=== PATIENT | female | born 1955 | race Caucasian/White ===

== ENCOUNTER 2018-12-29 15:04 | Emergency (ER) | payer SELFPAY ==
[~2018-12-29] VITALS: Ht 160 cm; Wt 90.7 kg
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
--- OUTSIDE RECORDS SUMMARY | 2018-12-29 15:18 | XMS REPORT ---
Author Author DIANA LANDRY Organization [facility] Address [address] [place] [address] Care Team Providers Care Contour Sander Name Role Phone LANDRY DIANA Unavailable PROBLEMS Type Condition ICD9-CM Code SDA14-BY Code Onset Dates Condition Status SNOMED Code Problem MRSA (methicillin resistant Staphylococcus aureus) A49.02 Active 497223704 Problem Allergy T78.40XA Active 665220319 Problem Asthma J45.909 Active 096413612 Problem Hypertension, benign I10 Active 85193828 Problem Ischemic heart disease I25.9 Active 421808285 Problem GERD (gastroesophageal reflux disease) K21.9 Active 820107484 Problem Hyperlipidemia, mixed E78.2 Active 316022217 ALLERGIES No Information ENCOUNTERS Encounter Location Date Diagnosis [facility] [id number] [place] [address]- 3196 Aug, [facility] [id number] [place] [address] 02061- 1064 Aug, [facility] [id number] [place] [address] 80097- 5378 Jul, Screening for breast cancer Z12.31 ; Vaginal discharge N89.8 ; Encounter for immunization Z23 ; Candidal vulvitis B37.3 ; Screening for osteoporosis Z13.820 and Skin tag L91.8 [facility] [id number] [place] [address] 23918- 9137 Jun, Hyperlipidemia, mixed E78.2 ; Hypertension, benign I10 ; Ischemic heart disease I25.9 ; Unprotected sex Z72.51 ; Need for hepatitis B screening test Z11.59 and Need for hepatitis C screening test Z11.59 [facility] [id number] [place] [address] 87908 -9912 Apr, Vaginal itching L29.8 [place] [id number] [place] [address] 26182- 5620 March, [facility] [id number] [place] [address] 52901 -5617 Nov, [facility] [id number] [place] [address] 11918 -2216 Nov, Acute atopic conjunctivitis of both eyes H10.13 [place] [address] 74274- 8604 Oct, Acute non-recurrent maxillary sinusitis J01.00 [place] [address] 74148- 1848 Aug, Encounter for immunization Z23 [place] [address] 16115- 3071 Apr, Allergy T78.40XA [place] [address] 43268- 8442 Apr, Chest wall pain R07.89 [place] [address] 78900- 1146 Apr, Chest wall pain R07.89 [place] [address] 60271- 7095 March, Allergy T78.40XA [place] [id number] [place] [address] 86036- 6187 Jan, [place] [id number] [place] [address] 51368- 7679 Jan, Allergic conjunctivitis, bilateral H10.13 [place] [address] 00225- 9789 Dec, Non-seasonal allergic rhinitis due to other allergic trigger J30.89 [place] [address] 83660- 9296 Sep, Acute upper respiratory infection, unspecified J06.9 and Encounter for immunization Z23 [place] [id number] [place] [address] 59951- 9981 May, Essential hypertension I10 and Coronary artery disease involving coronary bypass graft of [place] heart without angina pectoris I25.810 [place] [id number] [place] [address] 55505- 5484 May, [place] [address] 95722- 0616 Apr, [place] [address] 74172- 3760 Apr, [address] 75080- 8966 March, Allergic rhinitis 477.[address] 64100- 9904 Feb, [address] 86140- 9147 Feb, Hypertension, benign I10 ; Gastritis K29.70 ; Rhinitis J31.0 ; Mild intermittent asthma without complication J45.20 and Hand pain, right M79.641 [facility] [id number] [place] [address] [id number] 10 Jan, 2016 Encounter for dental examination Z01.20 [place] [id number] [place] [address] 51316- 6793 Dec, Closed displaced fracture of distal phalanx of finger S62.639A and Allergy T78.40XA [address] 82216- 0842 Nov, Fracture of distal phalanx of finger S62.639A ; GERD ( gastroesophageal reflux disease) K21.9 and Asthma J45.909 [place] [id number] [place] [address] 46747- 4890 15 Mark, 2016 Fracture of distal phalanx of finger S62.639A [place] [id number] [place] [address] 03641- 8719 Oct, [place] [address] 62477- 2453 Oct, [place] [address] 03058- 6095 Oct, Hyperlipidemia E78.5 [place] [address] 36274- 0501 Sep, Mood disorder F39 ; Hyperlipidemia, mixed E78.2 ; Ischemic heart disease I25.9 ; ST elevation (STEMI) myocardial infarction involving left anterior descending coronary artery I21.02 ; Hypertension, benign I10 and Coronary artery disease involving [place] heart without angina pectoris, unspecified vessel or lesion type I25.10 [place] [address] 08659- 9533 Aug, Encounter for immunization Z23 [place] [address] 64815- 0003 15 Jul, 2015 [place] [address] 03493- 5026 Jul, Sinusitis 473.9 and Allergic rhinitis 477.9 [place] [address] 94565- 6798 Jul, [place] [address] 71918- 2227 Jun, [place] [id number] [place] [address] 22481- 7070 May, 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 [place] [address] 74297- 8798 May, 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 [place] [address] 73915- 2081 May, Allergic conjunctivitis 372.14 and Rectal bleeding 569.3 [facility] [address] [address] 3899 Apr, Other and unspecified hyperlipidemia 272.4 and Coronary atherosclerosis of [place] coronary artery 414.01 [facility] [address] [address] 0406 March, [facility] [id number] [place] [address] 161403- 2767 March, [facility] [address] [facility] [id number] [address] 7634 Feb, [facility] [id number] [place] [address] 209663- 3904 Feb, [facility] [address] [address]- 9211 Jan, [facility] [address] [address]- 2183 Jan, [facility] [address] [address]- 4825 Jan, [facility] [address] [address]- 6871 Jan, [facility] [address] [address]- 3758 Jan, [facility] [address] [address]- 5110 Jan, [facility] [id number] 3036 Dec, [facility] [address] [address]- 4907 Dec, [facility] [id number] [address]- 5966 Dec, [facility] [address] [address]- 9835 Dec, [facility] [place] [facility] [address] [id number] [place] [address]- 6383 Nov, [facility] [place] [facility] [address] [id number] [place] [address]- 2306 Nov, [facility] [place] [facility] [address] [id number] [place] [address]- 5961 Jul, [facility] [place] [facility] [address] [id number] [place] [address]- 8256 Jul, [facility] [place] [facility] [address] [id number] [place] [address]- 6823 Jul, [facility] [place] [facility] [address] [id number] [place] [address]- 8764 Jul, [facility] [place] [facility] [address] [id number] [place] [address]- 9891 Jun, [facility] [place] [facility] [address] [id number] [place] [address]- 7534 Jun, [facility] [place] [facility] [address] [id number] [place] [address]- 5584 Apr, [facility] [place] [facility] [address] [id number] [place] [address]- 6527 Apr, [facility] [place] [facility] [address] [id number] [place] [address]- 8809 Jan, [facility] [place] [facility] [address] [id number] [place] [address]- 1168 Jan, [facility] [place] [facility] [address] [id number] [place] [address]- 7912 Jan, [facility] [place] [facility] [address] [id number] [place] [address]- 1706 Jan, [facility] [place] [facility] [address] [id number] [place] [address]- 2176 Dec, [facility] [place] [facility] [address] [id number] [place] [address]- 4518 Dec, [facility] [address] [id number] [place] [address]- 4073 Nov, [facility] [place] [facility] [address] [id number] [place] [address]- 5976 Nov, [facility] [address] [id number] [place] [address]- 2237 Jun, [facility] [place] [facility] [address] [id number] [place] [address]- 7668 Jun, [facility] [address] [id number] [place] [address]- 2956 Apr, [facility] [address] [id number] [place] [address]- 2922 Apr, [facility] [address] [id number] [place] [address]- 2339 Apr, [facility] [address] [id number] [place] [address]- 3682 March, [facility] [address] [id number] [place] [address]- 5788 Nov, [facility] [address] [id number] [place] [address]- 4841 Oct, [facility] [place] [facility] [address] [id number] [place] [address]- 9879 Oct, [facility] [address] [id number] [place] [address]- 4572 Oct, [facility] [place] [facility] [address] [id number] [place] [address]- 1724 Oct, [facility] [place] [facility] [address] [id number] [place] [address]- 6146 Sep, [facility] [place] [facility] [address] [id number] [place] [address]- 5380 Aug, [facility] [address] [id number], [place] [address]- 4510 Aug, [facility] [address] [id number] [place] [address]- 0647 Aug, [facility] [address] [facility] [id number] [place] [address]- 3250 Jul, [facility] [address] [id number] [place] [address]- 6399 Jun, [facility] [address] [id number] [place] [address]- 9101 Jun, [facility] [address] [id number] [place] [address]- 6267 Jun, [facility] [address] [facility] [id number] [place] [address]- 6778 Jun, [facility] [address] [facility] [id number], [place] [address]- 3009 March, [facility] [address] [facility] [id number], [place] [address]- 3094 March, [facility] [address] [facility] [id number], [place] [address]- 1171 Oct, [facility] [address] [facility] [id number], [place] [address]- 2367 March, [facility] [address] [facility] [id number], [place] [address]- 5768 Sep, [facility] [address] [facility] [id number], [place] [address]- 0517 Aug, [facility] [address] [facility] [id number], [place] [address]- 2032 Aug, [facility] [address] [facility] [id number][place] [address]- 9534 Aug, IMMUNIZATIONS No Known Immunizations SOCIAL HISTORY Never Assessed REASON FOR VISIT Requests return call PLAN OF CARE VITAL SIGNS MEDICATIONS Unknown Medications RESULTS No Results PROCEDURES No Known procedures INSTRUCTIONS MEDICATIONS ADMINISTERED No Known Medications MEDICAL [...]
--- OUTSIDE RECORDS SUMMARY | 2018-12-29 15:18 | XMS REPORT ---
Author Author JUSTINE GARCIA [facility] Address [address] [place] [address] Care Team Providers Care Flasher Adjuster Name Role Phone JUSTINE GARCIA Unavailable PROBLEMS Type Condition ICD9-CM Code NWD14-XK Code Onset Dates Condition Status SNOMED Code Problem MRSA (methicillin resistant Staphylococcus aureus) A49.02 Active 689622086 Problem Allergy T78.40XA Active 455653583 Problem Asthma J45.909 Active 724866475 Problem Hypertension, benign I10 Active 98929997 Problem Ischemic heart disease I25.9 Active 953665978 Problem GERD (gastroesophageal reflux disease) K21.9 Active 408034025 Problem Hyperlipidemia, mixed E78.2 Active 362250987 ALLERGIES No Information ENCOUNTERS Encounter Location Date Diagnosis [facility] [id number] [place] [address] [id number] Aug, [facility] [address] [address] Aug, [facility] [id number] [place] [address] 70319- 3864 Jul, Screening for breast cancer Z12.31 ; Vaginal discharge N89.8 ; Encounter for immunization Z23 ; Candidal vulvitis B37.3 ; Screening for osteoporosis Z13.820 and Skin tag L91.8 [facility] [id number] [place] [address] 05967- 6015 Jun, Hyperlipidemia, mixed E78.2 ; Hypertension, benign I10 ; Ischemic heart disease I25.9 ; Unprotected sex Z72.51 ; Need for hepatitis B screening test Z11.59 and Need for hepatitis C screening test Z11.59 [facility] [id number] [place] [address]55 -9610 Apr, Vaginal itching L29.8 [place] [id number] [place] [address] 09989- 5280 March, [facility] [id number] [place] [address] 98669 -2808 Nov, [facility] [id number] [place] [address]267 -0281 Nov, Acute atopic conjunctivitis of both eyes H10.13 [place] [id number] [place] [address] 52708- 8452 Oct, Acute non-recurrent maxillary sinusitis J01.00 [place] [address] [address]- [address]166 Aug, Encounter for immunization Z23 [address] [address] [address]- [address] Apr, Allergy T78.40XA [place] [address] 0[address]10- 5216 Apr, Chest wall pain R07.89 [place] [address] [address]- 1948 Apr, Chest wall pain R07.89 [place] [address] 96324- 1917 March, Allergy T78.40XA [place] [id number] [place] [address] 38139- 2069 Jan, [place] [id number] [place] [address] 56589- 5915 Jan, Allergic conjunctivitis, bilateral H10.13 [place] [id number] [place] [address] 10892- 3281 Dec, Non-seasonal allergic rhinitis due to other allergic trigger J30.89 [place] [id number] [place] [address] 52689- 0343 Sep, Acute upper respiratory infection, unspecified J06.9 and Encounter for immunization Z23 [address] [address] [address]- [address]1 May, Essential hypertension I10 and Coronary artery disease involving coronary bypass graft of moapa heart without angina pectoris I25.[address] [address]- [address]24 May, [place] [address] [address]- 3490 Apr, [address] [address]- [address] Apr, [place] [address] 64249- 0955 March, Allergic rhinitis 477.[address] [address]150- 5702 Feb, [address] [address]65- 5533 Feb, Hypertension, benign I10 ; Gastritis K29.70 ; Rhinitis J31.0 ; Mild intermittent asthma without complication J45.20 and Hand pain, right M79.641 [facility] [address] [id number] Jan, 2016 Encounter for dental examination Z01.[address] 03288- 0794 Dec, Closed displaced fracture of distal phalanx of finger S62.639A and Allergy T78.40XA [address] [address]50- 8437 Nov, Fracture of distal phalanx of finger S62.639A ; GERD ( gastroesophageal reflux disease) K21.9 and Asthma J45.[address] 81859- 3905 Nov, Fracture of distal phalanx of finger S62.639A [place] [id number] [place] [address] 31478- 6663 Oct, [place] [id number] [place] [address] 95335- 7146 Oct, [place] [id number] [place] [address] 11743- 2748 Oct, Hyperlipidemia E78.5 [place] [address] 41870- 9968 Sep, Mood disorder F39 ; Hyperlipidemia, mixed E78.2 ; Ischemic heart disease I25.9 ; ST elevation (STEMI) myocardial infarction involving left anterior descending coronary artery I21.02 ; Hypertension, benign I10 and Coronary artery disease involving moapa heart without angina pectoris, unspecified vessel or lesion type I25.10 [place] [address] 72532- 6610 08 Aug, 2015 Encounter for immunization Z23 [place] [id number] [place] [address] 96954- 1225 15 Jul, 2015 [place] [id number] [place] [address] 17719- 0163 Jul, Sinusitis 473.9 and Allergic rhinitis 477.9 [place] [id number] [place] [address] 50600- 1727 Jul, [place] [id number] [place] [address] 63623- 4745 Jun, [place] [id number] [place] [address] 14467- 8580 May, 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 [place] [id number] [place] [address] 64279- 0260 May, 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 [place] [id number] [place] [address] 80373- 4028 May, Allergic conjunctivitis 372.14 and Rectal bleeding 569.3 [facility] [address] [address] Apr, Other and unspecified hyperlipidemia 272.4 and Coronary atherosclerosis of moapa coronary artery 414.01 [facility] [address] [address] March, [facility] [id number] [place] [address] 53080- 2678 March, [facility] [id number] [place] [address] 50530- 8002 Feb, [facility] [id number] [place] [address] 84997- 5193 Feb, [facility] [id number] [place] [address] 332758- 4356 Jan, [facility] [id number] [place] [address] 02874- 5246 Jan, [facility] [address] [address]- [address]63 Jan, [facility] [address] [place] [address] 79827- 9009 Jan, [facility] [address] [place] [address]- 3993 Jan, [facility] [address] [place] [address]- 1237 Jan, [facility] [address] [place] [address]- 5849 Dec, [facility] [id number] [address]- 6946 Dec, [facility] [address] [place] [address]- 2546 Dec, [facility] [id number] [place] [address] 53057- 7109 Dec, [facility] [place] [facility] [address] [id number] [place] [address]- 8555 Nov, [facility] [place] [facility] [address] [id number] [place] [address]- 7832 Nov, [facility] [place] [facility] [address] [id number] [place] [address]- 7945 Jul, [facility] [place] [facility] [address] [id number] [place] [address]- 7924 Jul, [facility] [place] [facility] [address] [id number] [place] [address]- 7360 Jul, [facility] [place] [facility] [address] [id number] [place] [address]- 1545 Jul, [facility] [place] [facility] [address] [id number] [place] [address]- 7620 Jun, [facility] [place] [facility] [address] [id number] [place] [address]- 1278 Jun, [facility] [place] [facility] [address] [id number] [place] [address]- 3915 Apr, [facility] [place] [facility] [address] [id number] [place] [address]- 2293 Apr, [facility] [place] [facility] [address] [id number] [place] [address]- 7929 Jan, [facility] [place] [facility] [address] [id number], [place] [address]- 5360 Jan, [facility] [place] [facility] [address] [id number] [place] [address]- 0148 Jan, [facility] [place] [facility] [address] [id number] [place] [address]- 6954 Jan, [facility] [place] [facility] [address] [id number], [place] [address]- 6182 Dec, [facility] [place] [facility] [address] [id number] [place] [address]- 7360 Dec, [facility] [place] [facility] [address] [id number] [place] [address]- 0155 Nov, [facility] [place] [facility] [address] [id number] [place] [address]- 2978 Nov, [facility] [place] [facility] [address] [id number] [place] [address]- 4192 Jun, [facility] [place] [facility] [address] [id number] [place] [address]- 5917 Jun, [facility] [place] [facility] [address] [id number] [place] [address]- 5423 Apr, [facility] [place] [facility] [address] [id number] [place] [address]- 4618 Apr, [facility] [place] [facility] [address] [id number] [place] [address]- 3340 Apr, [facility] [place] [facility] [address] [id number] [place] [address]- 0661 March, [facility] [place] [facility] [address] [id number] [place] [address]- 5326 Nov, [facility] [place] [facility] [address] [id number] [place] [address]- 4777 Oct, [facility] [place] [facility] [address] [id number] [place] [address]- 2529 Oct, [facility] [place] [facility] [address] [id number] [place] [address]- 8919 Oct, [facility] [place] [facility] [address] [id number] [place] [address]- 6858 Oct, [facility] [place] [facility] [address] [id number] [place] [address]- 7173 Sep, [facility] [place] [facility] [address] [id number] [place] [address]- 4491 Aug, [facility] [address] [facility] [id number], [place] [address]- 2771 Aug, [facility] [address] [facility] [id number], [place] [address]- 5624 Aug, [facility] [address] [facility] [id number], [place] [address]- 9763 Jul, [facility] [address] [id number], [place] [address]- 4966 Jun, [facility] [address] [id number] [place] [address]- 4265 Jun, [facility] [address] [facility] [id number], [place] [address]- 9327 Jun, [facility] [address] [facility] [id number], [place] [address]- 2264 Jun, [facility] [address] [facility] [id number], [place] [address]- 6138 March, [facility] [address] [facility] [id number], [place] [address]- 8918 March, [facility] [address] [facility] [id number], [place] [address]- 0946 Oct, [facility] [address] [facility] [id number], [place] [address]- 0653 March, [facility] [address] [facility] [id number], [place] [address]- 9824 Sep, [facility] [address] [facility] [id number], [place] [address]- 4431 Aug, [facility] [address] [facility] [id number] [address]97 Aug, [facility] [address] [facility] [id number], [place] [address]- 2264 Aug, IMMUNIZATIONS No Known Immunizations SOCIAL HISTORY Never Assessed REASON FOR VISIT med order PLAN OF CARE VITAL SIGNS MEDICATIONS Medication Instructions Dosage Frequency Start Date End Date Duration Status Doxycycline Hyclate 100 mg Orally twice a day 1 capsule 12h 04 Aug, 2018 Aug, 10 day(s) Active RESULTS No Results PROCEDURES No Known procedures [...]
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
--- OUTSIDE RECORDS SUMMARY | 2018-12-29 15:19 | XMS REPORT ---
Author Author MANSI SCHAFFER Organization [facility] Address [address] [place] [address] Care Team Providers Care Media Professional Name Role Phone MANSI SCHAFFER Unavailable PROBLEMS Type Condition ICD9-CM Code XRQ82-NV Code Onset Dates Condition Status SNOMED Code Problem Allergy T78.40XA Active 261899261 Problem Asthma J45.909 Active 640552154 Problem Hypertension, benign I10 Active 25569194 Problem Ischemic heart disease I25.9 Active 503416093 Problem GERD (gastroesophageal reflux disease) K21.9 Active 073332568 Problem Hyperlipidemia, mixed E78.2 Active 668212468 ALLERGIES No Information ENCOUNTERS Encounter Location Date Diagnosis [place] [address] [address] March, [place] [address] [address] March, [facility] [place] [address] [address] Nov, [facility] [address] [address] Nov, Acute atopic conjunctivitis of both eyes H10.13 [place] [address] [address] Oct, Acute non-recurrent maxillary sinusitis J01.00 [place] [address] [address] Aug, Encounter for immunization Z23 [place] [address] [address] Apr, Allergy T78.40XA [place] [address] [address] Apr, Chest wall pain R07.89 [place] [address] [place] [id number] [place] [address]- [address] Apr, Chest wall pain R07.89 [place] [address] [place] [id number] [place] [address] 8[address]19- 2285 March, Allergy T78.40XA [place] [address] [address] Jan, [place] [address] [place] [id number] [place] [address]- [address]851 Jan, Allergic conjunctivitis, bilateral H10.13 [place] [address] [place] [id number] [place] [address] 87[address]- 1217 Dec, Non-seasonal allergic rhinitis due to other allergic trigger J30.89 [place] [address] [place] [id number] [place] [address] 18261- 8826 Sep, Acute upper respiratory infection, unspecified J06.9 and Encounter for immunization Z23 [place] [id number] [place] [address]89- [address]689 May, Essential hypertension I10 and Coronary artery disease involving coronary bypass graft of [place] heart without angina pectoris I25.810 [place] [address] [place] [id number] [place] [address] May, [place] [address] [place] [id number] [place] [address] 72437- 6649 Apr, [place] [address] [place] [id number] [place] [address] 20298- 6131 Apr, [place] [address] [place] [id number] [place] [address] 18909- 0906 March, Allergic rhinitis 477.9 [place] [address] [place] [id number] [place] [address]260- 7704 Feb, [place] [address] [place] [address] 07 Feb, 2016 Hypertension, benign I10 ; Gastritis K29.70 ; Rhinitis J31.0 ; Mild intermittent asthma without complication J45.20 and Hand pain, right M79.641 [facility] [address] [place] [id number] [place] [id number] 10 Jan, 2016 Encounter for dental examination Z01.20 [place] [address] [address] 29 Dec, 2015 Closed displaced fracture of distal phalanx of finger S62.639A and Allergy T78.40XA [address] [address] Nov, Fracture of distal phalanx of finger S62.639A ; GERD ( gastroesophageal reflux disease) K21.9 and Asthma J45.[address] [address] Nov, Fracture of distal phalanx of finger S62.639A [place] [address] [address] Oct, [address] [address] Oct, [address] [address] Oct, Hyperlipidemia E78.[address] [address] Sep, Mood disorder F39 ; Hyperlipidemia, mixed E78.2 ; Ischemic heart disease I25.9 ; ST elevation (STEMI) myocardial infarction involving left anterior descending coronary artery I21.02 ; Hypertension, benign I10 and Coronary artery disease involving [place] heart without angina pectoris, unspecified vessel or lesion type I25.10 [place] [address] [address]- [address] 08 Aug, 2015 Encounter for immunization Z23 [address] [id number] [address] 15 Jul, 2015 [facility] [address] [place] [id number] [place] [address] 45569- [address] Jul, Sinusitis 473.9 and Allergic rhinitis 477.9 [facility] [address] [place] [id number] [place] [address] 83850- 57[address] Jul, [facility] [address] [place] [id number] [place] [address] 76844- 6079 Jun, [facility] [address] [place] [id number] [place] [address] 33737- 2532 May, 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 [facility] [address] [place] [id number] [place] [address] 59350- 9525 May, 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 [facility] [address] [place] [id number] [place] [address] 87007- 9886 May, Allergic conjunctivitis 372.14 and Rectal bleeding 569.3 [facility] [address] [place] [id number] [place] [address] 58172- 1255 Apr, Other and unspecified hyperlipidemia 272.4 and Coronary atherosclerosis of [place] coronary artery 414.01 [facility] [address] [place] [id number] [place] [address] 24142- 1382 March, [facility] [address] [place] [id number] [place] [address] 46182- 8945 March, [facility] [address] [place] [id number] [place] [address] 94871- 6566 Feb, [facility] [address] [place] [id number] [place] [address] 84955- 1547 Feb, [facility] [address] [place] [id number] [place] [address] 65622- 4141 Jan, [facility] [id number] [place] [address] 42544- 5847 Jan, [facility] [place] [facility] [address] [id number] [place] [address] Jan, 2014 [facility] [place] [facility] [address] [id number] [place] [address] 8942 Jan, 2014 [facility] [place] [facility] [address] [id number] [place] [address]- 7906 Jan, 2014 [facility] [place] [facility] [address] [id number] [place] [address]- 9022 Jan, 2014 [facility] [place] [facility] [address] [id number] [place] [address]- 1089 Dec, 2014 [facility] [place] [facility] [address] [id number] [place] [address]- 9151 Dec, 2014 [facility] [place] [facility] [address] [id number] [place] [address]- 2167 Dec, 2014 [facility] [place] [facility] [address] [id number] [place] [address]- 9832 Dec, 2014 [facility] [place] [facility] [address] [id number] [place] [address]- 0706 Nov, [facility] [place] [facility] [address] [id number] [place] [address]- 5988 Nov, [facility] [place] [facility] [address] [id number] [place] [address]- 0165 Jul, [facility] [place] [facility] [address] [id number] [place] [address]- [address]109 24 Jul, 2014 [facility] [place] [facility] [address] [id number] [place] [address]- 1679 Jul, [facility] [place] [facility] [address] [id number] [place] [address]- 1343 Jul, [facility] [place] [facility] [address] [id number] [place] [address]- 6947 Jun, [facility] [place] [facility] [address] [id number] [place] [address]- 5069 Jun, [facility] [place] [facility] [address] [id number] [place] [address]- 8239 Apr, [facility] [place] [facility] [address] [id number] [place] [address]- 1488 Apr, [facility] [place] [facility] [address] [id number] [place] [address]- 3002 Jan, [facility] [place] [facility] [address] [id number] [place] [address]- 3051 Jan, [facility] [place] [facility] [address] [id number] [place] [address]- 3739 Jan, [facility] [place] [facility] [address] [id number] [place] [address]- 9317 Jan, [facility] [place] [facility] [address] [id number] [place] [address]- 7257 Dec, [facility] [place] [facility] [address] [id number] [place] [address]- 8861 Dec, [facility] [place] [facility] [address] [id number] [place] [address]- 1828 Nov, [facility] [place] [facility] [address] [id number] [place] [address]- 8512 Nov, [facility] [place] [facility] [address] [id number] [place] [address]- 3615 Jun, [facility] [place] [facility] [address] [id number] [place] [address]- 6047 Jun, [facility] [place] [facility] [address] [id number] [place] [address]- 2093 Apr, [facility] [place] [facility] [address] [id number] [place] [address]- 6797 Apr, [facility] [place] [facility] [address] [id number] [place] [address]- 5498 Apr, [facility] [place] [facility] [address] [id number] [place] [address]- 3044 March, [facility] [place] [facility] [address] [id number] [place] [address]- 2358 Nov, [facility] [place] [facility] [address] [id number] [place] [address] Oct, [facility] [place] [facility] [address] [id number] [place] [address]- 7331 Oct, [facility] [place] [facility] [address] [id number] [place] [address]- 9618 Oct, [facility] [place] [facility] [address] [id number] [place] [address]- 9022 Oct, [facility] [place] [facility] [address] [id number] [place] [address]- 3628 Sep, [facility] [place] [facility] [address] [id number] [place] [address]- 8421 Aug, [facility] [place] [facility] [address] [id number] [place] [address]- 4237 Aug, [facility] [place] [facility] [address] [id number] [place] [address]- 1517 Aug, [facility] [place] [facility] [address] [id number] [place] [address]- 3716 Jul, [facility] [place] [facility] [address] [id number] [place] [address]- 5683 Jun, [facility] [place] [facility] [address] [id number] [place] [address]- 3777 Jun, [facility] [place] [facility] [address] [id number] [place] [address]- 8229 Jun, [facility] [place] [facility] [address] [id number] [place] [address] Jun, [facility] [place] [facility] [address] [id number] [place] [address]- 2367 March, [facility] [address] [facility] [id number] [address] March, [facility] [address] [id number] [address] Oct, [facility] [address] [id number] [address] March, [facility] [address] [id number] [address] Sep, [facility] [address] [id number] [address] Aug, [facility] [address] [id number] [address]- [address] Aug, [facility] [address] [id number] [address]- [address] Aug, IMMUNIZATIONS Vaccine Route Administration Date Status FLUARIX QUAD (3 AND UP) 2017 IM Intramuscular Sep 04, 2017 Administered SOCIAL HISTORY Never Assessed REASON FOR VISIT flu shot jjournotR PLAN OF CARE VITAL SIGNS MEDICATIONS Unknown Medications RESULTS No Results PROCEDURES Procedure Date Ordered Result Body Site FLUARIX QUAD (3 & UP)--2014Sep 04, 2017 SINGLE IMMUNIZATION ADMIN Sep 04, 2017 INSTRUCTIONS MEDICATIONS ADMINISTERED No Known Medications MEDICAL [...]
--- OUTSIDE RECORDS SUMMARY | 2018-12-29 15:19 | XMS REPORT ---
Author MANSI Cervantes Organization [employer] Address Unknown Phone Unavailable Care Team Providers Care Communications Field Technician Name Role Phone MANSI SCHAFFER CP Unavailable Allergies No Known Allergies Problems Problem Type Condition Code Onset Dates Condition Status Problem Ischemic heart disease I25.9 Active Problem Hypertension, benign I10 Active Problem Hyperlipidemia, mixed E78.2 Active Assessment Hyperlipidemia E78.5 Active Medications No Known Medications Procedures Procedure Coding System Code Date LIPID PANEL CPT-4 17219 Oct 17, 2015 VENIPUNCT, ROUTINE* CPT-4 77907 Oct 17, 2015 COMPREHEN METABOLIC PANEL CPT-4 30989 Oct 17, 2015 Results No Known Results Summary Purpose [employer] Submission
--- OUTSIDE RECORDS SUMMARY | 2018-12-29 15:19 | XMS REPORT ---
Author MARIA D Forrest [facility] [employer] Address Unknown Phone Unavailable Care Team Providers Care Food Service Manager Name Role Phone MARIA D GUZMAN Unavailable Allergies, Adverse Reactions, Alerts Substance Reaction Event Type Penicillin V Potassium Info Not Available Drug Allergy Benzoyl Peroxide Info Not Available Drug Allergy Morphine violent behavior Drug Allergy Proactive Info Not Available Non Drug Allergy Problems Problem Type Condition ICD-9 Code Onset Dates Condition Status Problem Allergic rhinitis due to pollen 477.0 Active Problem Insomnia, unspecified 780.52 Active Problem Asthma, unspecified, unspecified status 493.90 Active Assessment Allergic rhinitis 477.9 Active Assessment Sinusitis 473.9 Active Problem Other and unspecified hyperlipidemia 272.4 Active Problem Other specified forms of chronic ischemic heart disease 414.8 Active Problem Unspecified episodic mood disorder 296.90 Active Problem Coronary atherosclerosis of che[place] coronary artery 414.01 Active Problem Unspecified pulmonary tuberculosis, confirmation unspecified 011.90 Active Problem Unspecified essential hypertension 401.9 Active Problem Obesity, unspecified 278.00 Active Medications Medication Code System Code Instructions Start Date End Date Status Dosage Flonase [facility] [address]-11 50 MCG/ACT Nasally 2 times a day Jul 25, 2015 1 spray in each nostril Cromolyn Sodium [facility] [address]-14 4 % Ophthalmic Four times a day June 04, 2015 1 drop into affected eye Singulair [facility] [address]-91 10 mg Aug 07, 2014 1 tablet by Oral route 1 time per day Doxycycline Hyclate [facility] [address]-44 100 MG Orally every 12 hrs Jul 25, 2015 Aug 04, 2015 1 capsule Protonix [facility] 74676186912 40 MG TAKE ONE TABLET BY MOUTH DAILY Aspirin [facility] [address]-84 81 MG Orally Once a day 1 tablet Melatonin [facility] [address]-67 5 MG Orally Once a day 1 tablet at bedtime as needed with food Simvastatin [facility] [address]-13 20 mg Aug 07, 2014 take 1 tablet ( 20 mg) by oral route once daily in the evening Ventolin HFA [facility] [address]-97 90 mcg/actuation Aug 07, 2014 2 puffs by Inhalation route 4 times per day Lisinopril [facility] [address]-07 10 mg 1 TAB orally once a day Aug 07, 2014 take 1 tablet by Oral route 1 time per day Metoprolol Tartrate [facility] 58810863580 25 MG TAKE ONE-HALF TABLET BY MOUTH TWICE DAILY Cetirizine HCl [facility] [address]-40 10 MG TAKE ONE TABLET BY MOUTH ONCE DAILY Procedures Procedure Coding System Code Date Office Visit, Est Pt., Level 3 CPT-4 03906 Jul 25, 2015 Vital Signs Date/Time: Jul 25, 2015 Temperature 98.5 F Weight 190.5 lbs Height 61 in BMI 35.99 Index Blood Pressure Diastolic 80 mmHg Blood Pressure Systolic 126 mmHg Cardiac Monitoring Heart Rate 80 bpm Results No Known Results Summary Purpose [employer] Submission
--- OUTSIDE RECORDS SUMMARY | 2018-12-29 15:19 | XMS REPORT ---
Author Author MELISSA GUTIÉRREZ [facility] Address [address] [place] [address] Care Team Providers Care Electronic Health Records Specialist Name Role Phone MELISSA GUTIÉRREZ Unavailable PROBLEMS Type Condition ICD9-CM Code [id number] Code Onset Dates Condition Status SNOMED Code Problem Allergy T78.40XA Active 502765185 Problem Asthma J45.909 Active 831276306 Problem Hypertension, benign I10 Active 48086247 Problem Ischemic heart disease I25.9 Active 064869342 Problem GERD (gastroesophageal reflux disease) K21.9 Active 280036380 Problem Hyperlipidemia, mixed E78.2 Active 862425110 ALLERGIES Substance Reaction Event Type Date Status Penicillin V Potassium Unknown Drug Allergy Apr, Active Benzoyl Peroxide Unknown Drug Allergy Apr, Active Morphine violent behavior Drug Allergy Apr, Active Proactive Unknown Non Drug Allergy Apr, Active ENCOUNTERS Encounter Location Date Diagnosis [facility] [place] [facility] [address] [id number] Aug, [facility] [id number] [place] [address] 21096- 1451 Jul, [facility] [id number] [place] [address] 13214- 8204 Jun, Hyperlipidemia, mixed E78.2 ; Hypertension, benign I10 ; Ischemic heart disease I25.9 ; Unprotected sex Z72.51 ; Need for hepatitis B screening test Z11.59 and Need for hepatitis C screening test Z11.59 [facility] [id number] [place] [address]7850 -4214 Apr, Vaginal itching L29.8 [facility] [id number] [place] [address] 61792- 4778 March, [facility] [id number] [place] [address]30 [address]0196 Nov, [facility] [id number] [place] [address] 06751 -6542 Nov, Acute atopic conjunctivitis of both eyes H10.13 [place] [id number] [place] [address] 60581- 1896 Oct, Acute non-recurrent maxillary sinusitis J01.00 [place] [id number] [place] [address] 22376- 2429 Aug, Encounter for immunization Z23 [place] [address] 26406- 4068 Apr, Allergy T78.40XA [place] [address] 80166- 9748 Apr, Chest wall pain R07.89 [place] [address] 30635- 0023 Apr, Chest wall pain R07.89 [place] [address] 06757- 2774 March, Allergy T78.40XA [place] [id number] [place] [address] 40196- 0940 Jan, [place] [id number] [place] [address] 26947- 1351 Jan, Allergic conjunctivitis, bilateral H10.13 [place] [id number] [place] [address] 75145- 5846 Dec, Non-seasonal allergic rhinitis due to other allergic trigger J30.89 [place] [id number] [place] [address] 53896- 2037 Sep, Acute upper respiratory infection, unspecified J06.9 and Encounter for immunization Z23 [place] [address] 31435- 7859 May, Essential hypertension I10 and Coronary artery disease involving coronary bypass graft of [place] heart without angina pectoris I25.810 [place] [address] 12846- 8843 May, [place] [address] 40112- 6194 Apr, [address] [address]42- 4858 Apr, [address] 82230- 3168 March, Allergic rhinitis [address] 56864- 2480 Feb, [address] 83084- 3079 Feb, Hypertension, benign I10 ; Gastritis K29.70 ; Rhinitis J31.0 ; Mild intermittent asthma without complication J45.20 and Hand pain, right M79.641 [facility] [place] [facility] [id number] [place] [id number] 10 Jan, 2016 Encounter for dental examination Z01.20 [place] [id number] [place] [address] 36071- 9474 Dec, Closed displaced fracture of distal phalanx of finger S62.639A and Allergy T78.40XA [place] [id number] [place] [address] 67433- 2357 Nov, Fracture of distal phalanx of finger S62.639A ; GERD ( gastroesophageal reflux disease) K21.9 and Asthma J45.[address] 50326- 5657 Nov, Fracture of distal phalanx of finger S62.639A [place] [id number] [place] [address] 49262- 7247 Oct, [place] [address] 93875- 3872 Oct, [place] [address] 72095- 5339 Oct, Hyperlipidemia E78.5 [place] [address] 92148- 4853 Sep, Mood disorder F39 ; Hyperlipidemia, mixed E78.2 ; Ischemic heart disease I25.9 ; ST elevation (STEMI) myocardial infarction involving left anterior descending coronary artery I21.02 ; Hypertension, benign I10 and Coronary artery disease involving [place] heart without angina pectoris, unspecified vessel or lesion type I25.10 [place] [address] 06440- 8516 Aug, Encounter for immunization Z23 [address] 54321- 5176 Jul, [place] [address] 28556- 2796 Jul, Sinusitis 473.9 and Allergic rhinitis 477.9 [place] [address] 27719- 8007 Jul, [place] [address] 08638- 8807 Jun, [place] [address] 81364- 8528 May, 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 [place] [address] 53446- 7930 May, 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 [place] [address] 32731- 5967 May, Allergic conjunctivitis 372.14 and Rectal bleeding 569.[address] 73546- 4139 Apr, Other and unspecified hyperlipidemia 272.4 and Coronary atherosclerosis of [place] coronary artery 414.01 [facility] [address] [id number], [place] [address] March, [facility] [address] [id number], [place] [address] 68[address] March, [facility] [place] [address] [id number], [place] [address] 8765 Feb, [facility] [address] [id number], [place] [address] 4537 Feb, [facility] [address] [id number], [place] [address] 2648 Jan, [facility] [address] [facility] [id number], [place] [address] 3581 Jan, [facility] [place] [facility] [address] [address] 8389 Jan, [facility] [address] [facility] [id number], [place] [address]- 6431 Jan, [facility] [address] [address] 4995 Jan, [facility] [address] [address] 5041 Jan, [facility] [place] [facility] [address] [id number], [place] [address] 9633 Dec, [facility] [address] [id number], [place] [address]- 2065 Dec, [facility] [address] [id number], [place] [address] 0731 Dec, [facility] [address] [facility] [id number] 1147 Dec, [facility] [address] [id number], [place] [address] 3830 Nov, [facility] [address] [id number] [place] [address]- 0334 Nov, [facility] [place] [facility] [address] [id number] [place] [address]- 6241 Jul, [facility] [place] [facility] [address] [id number] [place] [address]- 2899 Jul, [facility] [place] [facility] [address] [id number] [place] [address]- 5206 Jul, [facility] [place] [facility] [address] [id number] [place] [address] 1986 Jul, [facility] [place] [facility] [address] [id number] [place] [address]- 7272 Jun, [facility] [place] [facility] [address] [id number] [place] [address]- 9386 Jun, [facility] [place] [facility] [address] [id number] [place] [address]- 2895 Apr, [facility] [place] [facility] [address] [id number] [place] [address]- 9906 Apr, [facility] [place] [facility] [address] [id number] [place] [address]- 3788 Jan, [facility] [place] [facility] [address] [id number] [place] [address]- 6439 Jan, [facility] [place] [facility] [address] [id number], [place] [address]- 9851 Jan, [facility] [place] [facility] [address] [id number] [place] [address]- 0758 Jan, [facility] [place] [facility] [address] [id number] [place] [address]- 6110 Dec, [facility] [place] [facility] [address] [id number] [place] [address]- 9838 Dec, [facility] [place] [facility] [address] [id number], [place] [address]- 4958 Nov, [facility] [address] [id number] [place] [address]- 1907 Nov, [facility] [place] [facility] [address] [id number] [place] [address]- 4531 Jun, [facility] [place] [facility] [address] [id number] [place] [address]- 8355 Jun, [facility] [place] [facility] [address] [id number] [place] [address]- 3320 Apr, [facility] [place] [facility] [address] [id number] [place] [address]- 8746 Apr, [facility] [place] [facility] [address] [id number] [place] [address]- 0658 Apr, [facility] [place] [facility] [address] [facility] [id number] [place] [address]- 5079 March, [facility] [place] [facility] [address] [id number] [place] [address]- 3143 Nov, [facility] [place] [facility] [address] [facility] [id number] [place] [address]- 0595 Oct, [facility] [place] [facility] [address] [facility] [id number] [place] [address]- 3719 Oct, [facility] [place] [facility] [address] [id number] [place] [address]- 5574 Oct, [facility] [place] [facility] [address] [id number] [place] [address]- 1134 Oct, [facility] [place] [facility] [address] [id number] [place] [address]- 5278 Sep, [facility] [place] [facility] [address] [facility] [id number] [place] [address]- 1134 Aug, [facility] [place] [facility] [address] [facility] [id number] [place] [address]- 8639 Aug, [facility] [place] [facility] [address] [facility] [id number], [place] [address] 2546 Aug, [facility] [address] [facility] [id number], [place] [address]- 9266 Jul, [facility] [address] [facility] [id number], [place] [address] 2546 Jun, [facility] [address] [facility] [id number], [place] [address]- 3756 Jun, [facility] [address] [facility] [id number], [place] [address]- 6536 Jun, [facility] [address] [address]- 0436 Jun, [facility] [address] [id number], [place] [address]- 0336 March, [facility] [address], [place] [address]- 5256 March, [facility] [address], [place] [address]- 0286 Oct, [facility] [address], [place] [address]- 0256 March, [facility] [address], [place] [address] 2546 Sep, [facility] [address] [id number], [place] [address]- 9426 Aug, [facility] [address] [id number], [place] [address]- 8832 Aug, [facility] [address] [id number], [place] [address]- 2809 Aug, IMMUNIZATIONS No Known Immunizations SOCIAL HISTORY Never Assessed REASON FOR VISIT vaginal itching et dysuria for a week. pt reports she changed laundry detergents et soaps...thinks this is what caused this. tricia PLAN OF CARE Activity Details Follow Up prn Reason: VITAL SIGNS Height 61 in 2018-04-26 Weight 195.6 lbs 2018-04-26 Temperature 97.8 degrees Fahrenheit 2018-04-26 Heart Rate 70 bpm 2018-04-26 Respiratory Rate 20 2018-04-26 BMI 36.95 kg/m2 2018-04-26 Blood pressure systolic 126 mmHg 2018-04-26 Blood pressure diastolic 78 mmHg 2018-04-26 MEDICATIONS Medication Instructions Dosage Frequency Start Date End Date Duration Status Melatonin 5 MG Orally Once a day 1 tablet at bedtime as needed with food 24h Active Singulair 10 mg 1 tablet in the evening 24h 90 Active Monistat 3 4 % Vaginal Once a day 1 application at bedtime 24h Active Aspirin 81 MG Orally Once a day 1 tablet 24h Active Proventil HFA 108 (90 Base) MCG/ACT 2 puffs as needed 6h Active Protonix 40 mg 1 tablet 24h Active Simvastatin 20 mg 1 tablet in the evening 24h 90 Active Zoloft 50 mg Orally Once a day 1 tablet 24h Active Lisinopril 10 mg 1 tablet 24h 90 Active Metoprolol Tartrate 25 MG 1/2 tablet 12h Active Dexamethasone 0.1 % Ophthalmic Three times a day 1 drop into affected eye 8h Nov, 3 days Active Fluticasone Propionate 50 MCG/ACT Nasally Once a day 2 spray in each nostril 24h Dec, Active Diflucan 200 MG Orally every 72 hours 1 tablet 3 days Active Loratadine 10 MG Orally Once a day 1 tablet 24h Nov, Jun, 30 day(s) Active Cetirizine HCl 10 MG TAKE ONE TABLET BY MOUTH ONCE DAILY 30 Active RESULTS Name Result Date Reference Range UA LONG DIP (IN HOUSE) 2018-04-26 Lot # [id number] Exp date 2019 02 30 Clarity clear Color yellow Odor none GLU negative BHANU negative KET negative SG 1.025 BLO trace pH 6.0 Protein trace URO 0.2 NIT negative RAFA trace Lot # [id number] Exp date Oct 2018 PROCEDURES Procedure Date Ordered Result Body Site URINALYSIS, AUTO, W/O SCOPE April 26, 2018 INSTRUCTIONS MEDICATIONS ADMINISTERED No Known Medications [...]
--- OUTSIDE RECORDS SUMMARY | 2018-12-29 15:19 | XMS REPORT ---
Author Author MANSI SCHAFFER Organization [employer] Address Unknown Phone Unavailable Care Team Providers Care Manager Progressive Care Name Role Phone MANSI SCHAFFER CP Unavailable Allergies No Known Allergies Problems Problem Type Condition ICD-9 Code Onset Dates Condition Status Problem Allergic rhinitis due to pollen 477.0 Active Problem Insomnia, unspecified 780.52 Active Problem Asthma, unspecified, unspecified status 493.90 Active Problem Other and unspecified hyperlipidemia 272.4 Active Problem Other specified forms of chronic ischemic heart disease 414.8 Active Problem Unspecified episodic mood disorder 296.90 Active Problem Coronary atherosclerosis of [place] coronary artery 414.01 Active Problem Unspecified pulmonary tuberculosis, confirmation unspecified 011.90 Active Problem Unspecified essential hypertension 401.9 Active Problem Obesity, unspecified 278.00 Active Medications No Known Medications Results No Known Results Summary Purpose [employer] Submission
--- OUTSIDE RECORDS SUMMARY | 2018-12-29 15:19 | XMS REPORT ---
Author Author MANSI SCHAFFER Organization [facility] Address [address] [place] [address] Care Team Providers Care Motion Picture Operator Name Role Phone MANSI SCHAFFER Unavailable PROBLEMS Type Condition ICD9-CM Code HKS05-FL Code Onset Dates Condition Status SNOMED Code Problem Allergy T78.40XA Active 443297573 Problem Asthma J45.909 Active 407368338 Problem Hypertension, benign I10 Active 59785298 Problem Ischemic heart disease I25.9 Active 613148071 Problem GERD (gastroesophageal reflux disease) K21.9 Active 910248630 Problem Hyperlipidemia, mixed E78.2 Active 594123576 ALLERGIES No Information ENCOUNTERS Encounter Location Date Diagnosis [facility] [address] [address] Jul, [facility] [address] [id number] Jun, [facility] [address] [address] Jun, Hyperlipidemia, mixed E78.2 ; Hypertension, benign I10 ; Ischemic heart disease I25.9 ; Unprotected sex Z72.51 ; Need for hepatitis B screening test Z11.59 and Need for hepatitis C screening test Z11.59 [facility] [id number] [place] [address] Apr, Vaginal itching L29.8 [facility] [address] [address] March, [facility] [address] [address] Nov, [facility] [address] [address] Nov, Acute atopic conjunctivitis of both eyes H10.13 [place] [id number] [place] [address] Oct, Acute non-recurrent maxillary sinusitis J01.00 [place] [id number] [place] [address] Aug, Encounter for immunization Z23 [place] [address] [address] Apr, Allergy T78.40XA [place] [address] [address] Apr, Chest wall pain R07.89 [place] [address] [address] Apr, Chest wall pain R07.89 [place] [address] [address] March, Allergy T78.40XA [place] [address] [address] Jan, [place] [address] [address] Jan, Allergic conjunctivitis, bilateral H10.13 [place] [address] [address] Dec, Non-seasonal allergic rhinitis due to other allergic trigger J30.89 [place] [id number] [place] [address] Sep, Acute upper respiratory infection, unspecified J06.9 and Encounter for immunization Z23 [place] [address] [address] May, Essential hypertension I10 and Coronary artery disease involving coronary bypass graft of [place] heart without angina pectoris I25.810 [place] [address] [address] May, [place] [id number] [place] [address] Apr, [place] [address] [address] Apr, [place] [address] [address] March, Allergic rhinitis [address] [address] Feb, [address] [address] Feb, Hypertension, benign I10 ; Gastritis K29.70 ; Rhinitis J31.0 ; Mild intermittent asthma without complication J45.20 and Hand pain, right M79.641 [facility] [address] [id number] Jan, 2016 Encounter for dental examination Z01.20 [place] [id number] [place] [address] Dec, Closed displaced fracture of distal phalanx of finger S62.639A and Allergy T78.40XA [place] [id number] [place] [address] Nov, Fracture of distal phalanx of finger S62.639A ; GERD ( gastroesophageal reflux disease) K21.9 and Asthma J45.909 [place] [id number] [place] [address] Nov, Fracture of distal phalanx of finger S62.639A [address] [address] Oct, [place] [id number] [place] [address] Oct, [address] [address] Oct, Hyperlipidemia E78.5 [place] [id number] [place] [address] Sep, Mood disorder F39 ; Hyperlipidemia, mixed E78.2 ; Ischemic heart disease I25.9 ; ST elevation (STEMI) myocardial infarction involving left anterior descending coronary artery I21.02 ; Hypertension, benign I10 and Coronary artery disease involving [place] heart without angina pectoris, unspecified vessel or lesion type I25.[address] [address] 08 Aug, 2015 Encounter for immunization Z23 [address] [address] Jul, [address] [address] Jul, Sinusitis 473.9 and Allergic rhinitis 477.[address] [address] Jul, [address] [address] Jun, [address] [address] May, 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 [place] [id number] [place] [address] May, 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 [address] May, Allergic conjunctivitis 372.14 and Rectal bleeding 569.[address] [address] Apr, Other and unspecified hyperlipidemia 272.4 and Coronary atherosclerosis of [place] coronary artery 414.01 [place] [id number] [place] [address] March, [place] [id number] [place] [address] March, [facility] [address] [id number] [place] [address] 14 Feb, 2015 [facility] [place] [facility] [address] [id number] [place] [address] Feb, [facility] [place] [facility] [address] [id number] [place] [address] Jan, [facility] [place] [facility] [address] [id number] [place] [address] Jan, [facility] [place] [facility] [address] [id number] [place] [address]- 16[address] Jan, [facility] [place] [facility] [address] [id number] [place] [address] Jan, [facility] [place] [facility] [address] [id number] [place] [address]- [address] Jan, [facility] [place] [facility] [address] [id number] [place] [address]- [address] Jan, [facility] [place] [facility] [address] [id number] [place] [address]- [address] Dec, [facility] [place] [facility] [address] [facility] [id number] [place] [address] Dec, [facility] [place] [facility] [address] [id number] [place] [address]- [address] Dec, [facility] [place] [facility] [address] [id number] [place] [address]- [address] Dec, [facility] [place] [facility] [address] [id number] [place] [address]- [address] Nov, [facility] [place] [facility] [address] [id number] [place] [address]- [address] Nov, [facility] [place] [facility] [address] [id number] [place] [address]- [address] Jul, [facility] [place] [facility] [address] [id number] [place] [address] Jul, [facility] [place] [facility] [address] [id number] [place] [address]- [address]597 Jul, [facility] [place] [facility] [address] [id number] [place] [address] Jul, [facility] [place] [facility] [address] [id number] [place] [address]- 0702 Jun, [facility] [place] [facility] [address] [id number] [place] [address] 26[address] Jun, [facility] [place] [facility] [address] [id number] [place] [address]- [address] Apr, [facility] [place] [facility] [address] [id number] [place] [address]- [address] Apr, [facility] [place] [facility] [address] [id number] [place] [address]- [address] Jan, [facility] [place] [facility] [address] [id number] [place] [address]- 27[address] Jan, [facility] [place] [facility] [address] [id number] [place] [address]- [address] Jan, [facility] [place] [facility] [address] [id number] [place] [address] Jan, [facility] [place] [facility] [address] [id number], [place] [address] Dec, [facility] [place] [facility] [address] [id number] [place] [address]- 7[address] Dec, [facility] [place] [facility] [address] [id number] [place] [address] 8[address] Nov, [facility] [place] [facility] [address] [id number] [place] [address]- 10[address] Nov, [facility] [place] [facility] [address] [id number] [place] [address]- [address] Jun, [facility] [place] [facility] [address] [id number] [place] [address]- 30[address] Jun, [facility] [place] [facility] [address] [id number] [place] [address]- [address] Apr, [facility] [place] [facility] [address] [id number] [place] [address]- 49[address] Apr, [facility] [place] [facility] [address] [id number] [place] [address]- 90[address] Apr, [facility] [place] [facility] [address] [id number] [place] [address]- [address] March, [facility] [place] [facility] [address] [id number] [place] [address]- 2[address] Nov, [facility] [place] [facility] [address] [id number] [place] [address]- 97[address] Oct, [facility] [place] [facility] [address] [id number] [place] [address]- 64[address] Oct, [facility] [place] [facility] [address] [id number] [place] [address]- 8[address] Oct, [facility] [place] [facility] [address] [facility] [id number] [place] [address]- [address] Oct, [facility] [place] [facility] [address] [id number] [place] [address]- [address] Sep, [facility] [place] [facility] [address] [id number] [place] [address]- 4[address] Aug, [facility] [place] [facility] [address] [id number] [place] [address]- 488[address] Aug, [facility] [place] [facility] [address] [id number] [place] [address]- 8628 Aug, [facility] [place] [facility] [address] [id number] [place] [address]- 7[address] Jul, [facility] [address] [facility] [id number], [place] [address] Jun, [facility] [address] [facility] [id number], [place] [address] Jun, [facility] [address] [facility] [id number], [place] [address]- [address] Jun, [facility] [address] [facility] [id number], [place] [address] Jun, [facility] [address] [facility] [id number], [place] [address] March, [facility] [address] [facility] [id number], [place] [address] March, [facility] [address] [address] Oct, [facility] [address], [place] [address] March, [facility] [address], [place] [address] Sep, [facility] [address] [id number], [place] [address] Aug, [facility] [address] [id number], [place] [address] Aug, [facility] [address] [id number], [place] [address] Aug, IMMUNIZATIONS No Known Immunizations SOCIAL HISTORY Never Assessed REASON FOR VISIT Eye Exam Appt PLAN OF CARE VITAL SIGNS MEDICATIONS Unknown [...]
--- OUTSIDE RECORDS SUMMARY | 2018-12-29 15:20 | XMS REPORT ---
Author MANSI Cervantes Organization [employer] Address Unknown Phone Unavailable Care Team Providers Care Director Account Management Name Role Phone MANSI SCHAFFER CP Unavailable Allergies No Known Allergies Problems Problem Type Condition Code Onset Dates Condition Status Problem Ischemic heart disease I25.9 Active Problem Hypertension, benign I10 Active Problem Hyperlipidemia, mixed E78.2 Active Medications No Known Medications Results No Known Results Summary Purpose [employer] Submission
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
--- OUTSIDE RECORDS SUMMARY | 2018-12-29 15:20 | XMS REPORT ---
Author SHAYNE Tucker [facility] [employer] Address Unknown Phone Unavailable Care Team Providers Care Solar Project Coordination Specialist Name Role Phone SHAYNE CARDONA CP Unavailable Allergies, Adverse Reactions, Alerts Substance Reaction Event Type Penicillin V Potassium Info Not Available Drug Allergy Benzoyl Peroxide Info Not Available Drug Allergy Morphine violent behavior Drug Allergy Proactive Info Not Available Non Drug Allergy Problems Problem Type Condition Code Onset Dates Condition Status Assessment Asthma J45.909 Active Problem Asthma J45.909 Active Problem Hyperlipidemia, mixed E78.2 Active Problem GERD (gastroesophageal reflux disease) K21.9 Active Assessment Fracture of distal phalanx of finger S62.639A Active Assessment GERD (gastroesophageal reflux disease) K21.9 Active Problem Ischemic heart disease I25.9 Active Problem Hypertension, benign I10 Active Medications Medication Code System Code Instructions Start Date End Date Status Dosage Lisinopril [facility] [address]-71 10 MG Once a day 1 tablet Cromolyn Sodium [facility] [address]-07 4 % Ophthalmic Four times a day 1 drop into affected eye Aspirin [facility] [address]-16 81 MG Orally Once a day 1 tablet Metoprolol Tartrate [facility] 23207776496 25 MG TAKE ONE-HALF TABLET BY MOUTH TWICE DAILY Cetirizine HCl [facility] [address]-11 10 MG TAKE ONE TABLET BY MOUTH ONCE DAILY Simvastatin [facility] [address]-99 20 MG Once a day 1 tablet in the evening Melatonin [facility] [address]-20 5 MG Orally Once a day 1 tablet at bedtime as needed with food Protonix [facility] 54222294385 40 MG TAKE ONE TABLET BY MOUTH DAILY Proventil HFA [facility] 05930348695 108 (90 Base) MCG/ACT INHALE TWO PUFFS BY MOUTH FOUR TIMES DAILY Ventolin HFA [facility] [address]-48 90 mcg/actuation Aug 07, 2014 2 puffs by Inhalation route 4 times per day Singulair [facility] 80948467254 10 MG TAKE ONE TABLET BY MOUTH DAILY Procedures Procedure Coding System Code Date Office Visit, Est Pt., Level 3 CPT-4 83942 Dec 14, 2015 X-RAY EXAM OF FINGER(S) CPT-4 96684 Dec 14, 2015 Vital Signs Date/Time: Dec 14, 2015 Temperature 97.7 F Weight 180.1 lbs Height 61 in BMI 34.03 Index Blood Pressure Diastolic 76 mmHg Blood Pressure Systolic 120 mmHg Cardiac Monitoring Heart Rate 84 bpm Results No Known Results Summary Purpose [employer] Submission
--- OUTSIDE RECORDS SUMMARY | 2018-12-29 15:20 | XMS REPORT ---
Author Author MANSI SCHAFFER Organization [employer] Address Unknown Phone Unavailable Care Team Providers Care Chief Station Engineer Name Role Phone MANSI SCHAFFER CP Unavailable Allergies No Known Allergies Problems Problem Type Condition Code Onset Dates Condition Status Problem Allergic rhinitis due to pollen 477.0 Active Problem Insomnia, unspecified 780.52 Active Problem Asthma, unspecified, unspecified status 493.90 Active Problem Other and unspecified hyperlipidemia 272.4 Active Problem Other specified forms of chronic ischemic heart disease 414.8 Active Problem Unspecified episodic mood disorder 296.90 Active Problem Coronary atherosclerosis of [place] coronary artery 414.01 Active Problem Unspecified pulmonary tuberculosis, confirmation unspecified 011.90 Active Problem Unspecified essential hypertension 401.9 Active Problem Obesity, unspecified 278.00 Active Medications No Known Medications Results No Known Results Summary Purpose [employer] Submission
--- OUTSIDE RECORDS SUMMARY | 2018-12-29 15:20 | XMS REPORT ---
Author MANSI Cervantes Organization [employer] Address Unknown Phone Unavailable Care Team Providers Care Quill Cleaning Machine Operator Name Role Phone MANSI SCHAFFER CP Unavailable Allergies No Known Allergies Problems Problem Type Condition Code Onset Dates Condition Status Problem GERD (gastroesophageal reflux disease) K21.9 Active Problem Asthma J45.909 Active Problem Allergy T78.40XA Active Problem Hypertension, benign I10 Active Problem Hyperlipidemia, mixed E78.2 Active Problem Ischemic heart disease I25.9 Active Medications No Known Medications Results No Known Results Summary Purpose [employer] Submission
--- OUTSIDE RECORDS SUMMARY | 2018-12-29 15:20 | XMS REPORT ---
Author BAUTISTA Ratliff [facility] [employer] Address Unknown Phone Unavailable Care Team Providers Care Military Education Coordinator Name Role Phone BAUTISTA MORA CP Unavailable Allergies No Known Allergies Problems Problem Type Condition Code Onset Dates Condition Status Problem Allergic rhinitis due to pollen 477.0 Active Problem Insomnia, unspecified 780.52 Active Problem Asthma, unspecified, unspecified status 493.90 Active Assessment Encounter for immunization Z23 Active Problem Other and unspecified hyperlipidemia 272.4 Active Problem Other specified forms of chronic ischemic heart disease 414.8 Active Problem Unspecified episodic mood disorder 296.90 Active Problem Coronary atherosclerosis of [place] coronary artery 414.01 Active Problem Unspecified pulmonary tuberculosis, 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
--- OUTSIDE RECORDS SUMMARY | 2018-12-29 15:20 | XMS REPORT ---
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
--- OUTSIDE RECORDS SUMMARY | 2018-12-29 15:20 | XMS REPORT ---
Author Author MANSI SCHAFFER Organization [facility] Address [address] [place] [address] Care Team Providers Care Product Safety Technical Assistant Name Role Phone MANSI SCHAFFER Unavailable PROBLEMS Type Condition ICD9-CM Code XLA22-OI Code Onset Dates Condition Status SNOMED Code Problem Allergy T78.40XA Active 325125553 Problem Asthma J45.909 Active 338980007 Problem Hypertension, benign I10 Active 94084085 Problem Ischemic heart disease I25.9 Active 373998597 Problem GERD (gastroesophageal reflux disease) K21.9 Active 147805825 Problem Hyperlipidemia, mixed E78.2 Active 219160425 ALLERGIES No Information ENCOUNTERS Encounter Location Date Diagnosis [facility] [address] [address] Nov, [facility] [address] [place] [address] Nov, Acute atopic conjunctivitis of both eyes H10.13 [place] [address] [address] Oct, Acute non-recurrent maxillary sinusitis J01.00 [place] [address] [address] Aug, Encounter for immunization Z23 [place] [address] [address] Apr, Allergy T78.40XA [place] [address] [address] Apr, Chest wall pain R07.89 [place] [address] [address] Apr, Chest wall pain R07.89 [place] [address] [address] March, Allergy T78.40XA [place] [address] [address] Jan, [place] [address] [address] Jan, Allergic conjunctivitis, bilateral H10.13 [place] [address] [address] Dec, Non-seasonal allergic rhinitis due to other allergic trigger J30.[address] [address] Sep, Acute upper respiratory infection, unspecified J06.9 and Encounter for immunization Z23 [address] [address] May, Essential hypertension I10 and Coronary artery disease involving coronary bypass graft of [place] heart without angina pectoris I25.[address] [address] May, [address] [address] Apr, [address] [address] Apr, [address] [address] March, Allergic rhinitis 477.9 [place] [address] [address] Feb, [address] [address] Feb, Hypertension, benign I10 ; Gastritis K29.70 ; Rhinitis J31.0 ; Mild intermittent asthma without complication J45.20 and Hand pain, right M79.641 [facility] [address] [address] 10 Jan, 2016 Encounter for dental examination Z01.20 [place] [address] [address] Dec, Closed displaced fracture of distal phalanx of finger S62.639A and Allergy T78.40XA [place] [address] [address] Nov, Fracture of distal phalanx of finger S62.639A ; GERD ( gastroesophageal reflux disease) K21.9 and Asthma J45.909 [place] [address] [address] Nov, Fracture of distal phalanx of finger S62.639A [place] [address] [address] Oct, [place] [address] [address] Oct, [place] [address] [place] [id number] [place] [address] Oct, Hyperlipidemia E78.[address] [address] Sep, Mood disorder F39 ; Hyperlipidemia, mixed E78.2 ; Ischemic heart disease I25.9 ; ST elevation (STEMI) myocardial infarction involving left anterior descending coronary artery I21.02 ; Hypertension, benign I10 and Coronary artery disease involving [place] heart without angina pectoris, unspecified vessel or lesion type I25.10 [place] [address] [place] [id number] [place] [address] Aug, Encounter for immunization Z23 [place] [address] [address] 15 Jul, 2015 [place] [address] [address] 09 Jul, 2015 Sinusitis 473.9 and Allergic rhinitis 477.9 [facility] [address] [address] Jul, [facility] [address] [place] [id number] [place] [address] Jun, [facility] [address] [address] May, 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 [facility] [address] [place] [id number] [place] [address] May, 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 [facility] [address] [place] [id number] [place] [address] May, Allergic conjunctivitis 372.14 and Rectal bleeding 569.3 [facility] [address] [place] [id number] [place] [address] Apr, Other and unspecified hyperlipidemia 272.4 and Coronary atherosclerosis of [place] coronary artery 414.01 [facility] [address] [address] March, [facility] [address] [place] [id number] [place] [address] March, [facility] [address] [address] Feb, [facility] [address] [address] Feb, [facility] [address] [address] Jan, [facility] [address] [place] [address] Jan, [facility] [address] Jan, [facility] [address] [address] Jan, [facility] [place] [facility] [address] [id number] [place] [address] Jan, [facility] [place] [facility] [address] [id number] [place] [address] Jan, [facility] [place] [facility] [address] [id number] [place] [address] Dec, 2014 [facility] [place] [facility] [address] [id number] [place] [address] Dec, 2014 [facility] [place] [facility] [address] [id number] [place] [address] Dec, [facility] [place] [facility] [address] [id number] [place] [address] Dec, [facility] [place] [facility] [address] [id number] [place] [address] Nov, [facility] [place] [facility] [address] [id number] [place] [address] Nov, [facility] [place] [facility] [address] [id number] [place] [address] Jul, [facility] [place] [facility] [address] [id number] [place] [address] Jul, [facility] [place] [facility] [address] [id number] [place] [address] Jul, [facility] [place] [facility] [address] [id number] [place] [address] Jul, [facility] [place] [facility] [address] [id number] [place] [address] 28[address] Jun, [facility] [place] [facility] [address] [id number] [place] [address]- [address] Jun, [facility] [place] [facility] [address] [id number] [place] [address] Apr, [facility] [place] [facility] [address] [id number] [address] Apr, [facility] [place] [facility] [address] [id number] [place] [address] Jan, [facility] [place] [facility] [address] [id number] [place] [address] Jan, [facility] [place] [facility] [address] [id number] [place] [address] Jan, [facility] [place] [facility] [address] [id number] [place] [address] Jan, [facility] [place] [facility] [address] [id number] [place] [address] 114[address] Dec, [facility] [place] [facility] [address] [id number] [place] [address] Dec, [facility] [place] [facility] [address] [id number] [place] [address]- [address] Nov, [facility] [place] [facility] [address] [id number] [place] [address] 46[address] Nov, [facility] [place] [facility] [address] [id number] [place] [address]- [address] Jun, [facility] [place] [facility] [address] [id number] [place] [address]- 6[address] Jun, [facility] [place] [facility] [address] [id number] [place] [address]- [address] Apr, [facility] [place] [facility] [address] [id number] [place] [address]- 130[address] Apr, [facility] [place] [facility] [address] [id number] [place] [address]- [address] Apr, [facility] [place] [facility] [address] [id number] [place] [address] March, [facility] [place] [facility] [address] [id number] [place] [address]- [address] Nov, [facility] [place] [facility] [address] [id number] [place] [address]- [address] Oct, [facility] [place] [facility] [address] [id number] [place] [address] Oct, [facility] [place] [facility] [address] [id number] [place] [address]- [address] Oct, [facility] [place] [facility] [address] [id number] [place] [address]- [address] Oct, [facility] [place] [facility] [address] [id number] [place] [address]- [address] Sep, [facility] [place] [facility] [address] [id number] [place] [address]- [address] Aug, [facility] [place] [facility] [address] [id number] [place] [address] Aug, [facility] [place] [facility] [address] [id number] [place] [address]- [address] Aug, [facility] [place] [facility] [address] [id number] [place] [address]- 70[address] Jul, [facility] [place] [facility] [address] [id number] [place] [address]- [address] Jun, [facility] [place] [facility] [address] [id number] [place] [address]- [address] Jun, [facility] [place] [facility] [address] [id number] [place] [address]- 3056 Jun, [facility] [place] [facility] [address] [id number] [place] [address]- 7[address] Jun, [facility] [place] [facility] [address] [id number] [place] [address]- 9[address] March, [facility] [place] [facility] [address] [id number] [place] [address]- [address] March, [facility] [place] [facility] [address] [id number] [place] [address]- [address] Oct, [facility] [address] [facility] [id number] [place] [address] March, [facility] [address] [facility] [id number] [address] Sep, [facility] [address] [facility] [id number], [place] [address]- [address] Aug, [facility] [address] [facility] [id number], [place] [address]- [address] Aug, [facility] [address] [facility] [id number] [address] Aug, IMMUNIZATIONS No Known Immunizations SOCIAL HISTORY Never Assessed REASON FOR VISIT Xray (walk-in)--[facility] PLAN OF CARE VITAL SIGNS MEDICATIONS Unknown Medications RESULTS Name Result Date Reference Range Xray : Chest (IN HOUSE) 2017-05-07 PROCEDURES Procedure Date Ordered Result Body Site CHEST X-RAY May 07, 2017 INSTRUCTIONS MEDICATIONS ADMINISTERED No Known Medications [...]
--- OUTSIDE RECORDS SUMMARY | 2018-12-29 15:20 | XMS REPORT ---
Author MANSI Cervantes [facility] [employer] Address Unknown Phone Unavailable Care Team Providers Care Continuity Coordinator Name Role Phone MANSI SCHAFFER CP Unavailable Allergies, Adverse Reactions, Alerts Substance Reaction Event Type Penicillin V Potassium Info Not Available Drug Allergy Benzoyl Peroxide Info Not Available Drug Allergy Morphine violent behavior Drug Allergy Proactive Info Not Available Non Drug Allergy Problems Problem Type Condition Code Onset Dates Condition Status Assessment Coronary artery disease involving coronary bypass graft of [place] heart without angina pectoris I25.810 Active Problem GERD (gastroesophageal reflux disease) K21.9 Active Problem Asthma J45.909 Active Problem Allergy T78.40XA Active Problem Hypertension, benign I10 Active Assessment Essential hypertension I10 Active Problem Hyperlipidemia, mixed E78.2 Active Problem Ischemic heart disease I25.9 Active Medications Medication Code System Code Instructions Start Date End Date Status Dosage Cromolyn Sodium [facility] [address]-00 4 % Ophthalmic Four times a day 1 drop into affected eye Protonix [facility] [address]-13 40 mg Once a day 1 tablet Fluticasone Propionate [facility] [address]-83 50 MCG/ACT Nasally Once a day Jan 14, 2016 2 spray in each nostril Proventil HFA [facility] [address]-94 108 (90 Base) MCG/ACT 4 times a day 2 puffs as needed Simvastatin [facility] [address]-77 20 MG Once a day 1 tablet in the evening Melatonin [facility] [address]-32 5 MG Orally Once a day 1 tablet at bedtime as needed with food Singulair [facility] [address]-31 10 mg Once a day 1 tablet in the evening Metoprolol Tartrate [facility] 18439014331 25 MG TAKE ONE-HALF TABLET BY MOUTH TWICE DAILY Lisinopril [facility] [address]-86 10 MG Once a day 1 tablet Aspirin [facility] [address]-56 81 MG Orally Once a day 1 tablet Cetirizine HCl [facility] 81607379373 10 MG TAKE ONE TABLET BY MOUTH ONCE DAILY Procedures Procedure Coding System Code Date Office Visit, Est Pt., Level 3 CPT-4 08626 June 13, 2016 Vital Signs Date/Time: June 13, 2016 Cardiac Monitoring Heart Rate 60 bpm Weight 170.7 lbs Height 61 in BMI 32.25 Index Blood Pressure Diastolic 70 mmHg Blood Pressure Systolic 116 mmHg Results No Known Results Summary Purpose eClinicalWorks Submission
--- OUTSIDE RECORDS SUMMARY | 2018-12-29 15:20 | XMS REPORT ---
Author MANSI Cervantes Organization [employer] Address Unknown Phone Unavailable Care Team Providers Care Urban Forester Name Role Phone MANSI SCHAFFER CP Unavailable Allergies No Known Allergies Problems Problem Type Condition Code Onset Dates Condition Status Problem Ischemic heart disease I25.9 Active Problem Hypertension, benign I10 Active Problem Hyperlipidemia, mixed E78.2 Active Medications No Known Medications Results No Known Results Summary Purpose [employer] Submission
--- OUTSIDE RECORDS SUMMARY | 2018-12-29 15:20 | XMS REPORT ---
Author Author MANSI SCHAFFER [facility] Address [address] [place] [address] Care Team Providers Care Otm Consultant Name Role Phone MANSI SCHAFFER Unavailable PROBLEMS Type Condition ICD9-CM Code IHQ47-TK Code Onset Dates Condition Status SNOMED Code Problem Allergy T78.40XA Active 012854008 Problem Asthma J45.909 Active 698734105 Problem Hypertension, benign I10 Active 43290249 Problem Ischemic heart disease I25.9 Active 645266775 Problem GERD (gastroesophageal reflux disease) K21.9 Active 655126951 Problem Hyperlipidemia, mixed E78.2 Active 034108781 ALLERGIES Substance Reaction Event Type Date Status Penicillin V Potassium Unknown Drug Allergy March, Active Benzoyl Peroxide Unknown Drug Allergy March, Active Morphine violent behavior Drug Allergy March, Active Proactive Unknown Non Drug Allergy March, Active SOCIAL HISTORY Never Assessed PLAN OF CARE VITAL SIGNS Height 61 in 2017-04-09 Weight 188 lbs 2017-04-09 Temperature 97.0 degrees Fahrenheit 2017-04-09 Heart Rate 70 bpm 2017-04-09 Respiratory Rate 18 2017-04-09 BMI 35.52 kg/m2 2017-04-09 Blood pressure systolic 128 mmHg 2017-04-09 Blood pressure diastolic 74 mmHg 2017-04-09 MEDICATIONS Medication Instructions Dosage Frequency Start Date End Date Duration Status Melatonin 5 MG Orally Once a day 1 tablet at bedtime as needed with food 24h Active Singulair 10 mg 1 tablet in the evening 24h 90 Active Lisinopril 10 mg 1 tablet 24h 90 Active Aspirin 81 MG Orally Once a day 1 tablet 24h Active Cetirizine HCl 10 mg 1 tablet 24h Active Dexamethasone 0.1 % Ophthalmic Three times a day 1 drop into affected eye 8h 07 Jan, 2016 03 days Active Metoprolol Tartrate 25 MG 1/2 tablet 12h Active Proventil HFA 108 (90 Base) MCG/ACT 2 puffs as needed 6h Active Fluticasone Propionate 50 MCG/ACT Nasally Once a day 2 spray in each nostril 24h 29 Dec, 2015 Active Protonix 40 mg 1 tablet 24h Active Zoloft 50 mg Orally Once a day 1 tablet 24h Active Simvastatin 20 mg 1 tablet in the evening 24h 90 Active Chlorpheniramine Maleate 4 MG Orally 2 times a day 1 tablet as needed 12h 13 Dec, 2016 Active RESULTS No Results PROCEDURES No Known [...]
--- OUTSIDE RECORDS SUMMARY | 2018-12-29 15:21 | XMS REPORT | Continuity of Care Document ---
Author Author [facility] Organization [facility] Address Unknown Phone Unavailable Support Name Relationship Address Phone MANSI SCHAFFER Caregiver [facility] [address] [place] [address] LALITO JAFFE DO Caregiver [address] [place] [address] SHAYNE CARDONA MD Caregiver [address] [place] [address] JAZIEL [place] [address] Insurance Providers Payer Name Policy Number Subscriber Name Relationship Disability Determination [id number] Determinatin,Disablity Ny G8 Other Advance Directives Directive Response Recorded Date/Time Advance Directives No 08/28/15 2:48pm Health Care Power of Applications Chemist No 08/28/15 2:48pm Organ Donor Yes 08/28/15 2:48pm Resuscitation Status Full Code 08/28/15 2:48pm Problems Active Problems Medical Problem Onset Date Status Acute colitis Unknown Acute Lower GI bleed Unknown Acute Lower GI bleed Unknown Acute 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 Medications Current Home Medications Medication Dose Units Route Directions Days/Qty Instructions Start Date Lisinopril 10 Mg 10 Mg Oral Daily 10-18-14 LAST FILL #90 12/04/14 Simvastatin 20 Mg 20 Mg Oral Bedtime 04-18-14 LAST FILL #90 12/04/14 Loratadine 10 Mg 10 Mg Oral Daily BOTTLE 08-01-14 #30 12/04/14 Albuterol 8.5 Gm 2 Puff Inhalation Four Times Daily 02-03-14 LAST FILL #1 INHALER 12/04/14 Pyridoxine/Melatonin 1 Tab 2 Tab Oral 12/16/14 Pantoprazole Sod 40 Mg 40 Mg Oral 12/16/14 [Olanzapine] 12/16/14 Aspirin 81 Mg 81 Mg Oral 12/16/14 Metoprolol Succinate 25 Mg 25 Mg Oral 12/16/14 Hydrocodone Bit/Acetaminophen 1 Each 1 Ea Oral Every 6 Hours as needed for Mild Pain 10 12/16/14 Past Home Medications Medication Directions Ordered Status Estradiol 1 Mg Tablet, 06/09/09 Discontinued Potassium Chloride 20 Meq Tab, 20 Meq Oral Daily 06/09/09 Discontinued Magnesium Oxide 400 Mg Tab, 400 Mg Oral Twice A Day 06/09/09 Discontinued Lisinopril 5 Mg Tablet, Unknown Dose Oral Daily 12/04/14 Discontinued Simvastatin 10 Mg Tablet, Unknown Dose Oral Daily 12/04/14 Discontinued Social History Social History Problem Response Recorded Date/Time Alcohol Use Denies Use 12/16/2014 11:12am Recreational Drug Use Y cannibus 12/16/2014 11:12am Recent Foreign Travel No 08/28/2015 2:53pm Sexually Transmitted Disease No 12/16/2014 11:12am Smoking Status Never a Smoker 08/28/2015 2:51pm Do you dip or chew tobacco? No 08/28/2015 2:51pm Query Response Start Date Stop Date Smoking Status Never a Smoker Hospital Discharge Instructions Patient Instructions Physician Instructions Plan of Care/Instructions/FU: 1 week Jaffe Hold aspirin for 7 more days then restart. Activity as Tolerated: Yes Discharge Diet: Regular Diet Care Plan Patient Instructions:: 1 week DunbarHold aspirin for 7 more days then restart. Plan of Care Discharge Date 08/28/15 4:44pm Instructions/Education Provided Colonoscopy (DC) Prescriptions See Medication Section Functional Status No functional status results. Allergies, Adverse Reactions, Alerts Allergen Type Severity Reaction Status Last Updated Penicillins ([id number]) Allergy Mild Active 06/09/09 Immunizations Name Given Type Date of Pneumonia Vaccine 08/27/12 Historical Date of Influenza Vaccine 08/21/15 Historical Vital Signs Acute Vital Signs Vital Response Date/Time Temperature (Fahrenheit) 98.0 degrees F (97.6 - 99.5) 08/28/2015 4:43pm Temperature (Calculated Celsius) 36.16408 degrees C (36.4 - 37.5) 08/28/2015 4:43pm Temperature Source Tympanic 08/28/2015 4:43pm Pulse Rate (adult) 62 bpm (60 - 90) 08/28/2015 4:43pm Respiratory Rate 18 bpm (12 - 24) 08/28/2015 4:43pm O2 Sat by Pulse Oximetry 92 % (88 - 100) 08/28/2015 4:43pm Blood Pressure 175/89 mm Hg 08/28/2015 4:43pm Pain Pain Intensity 0 08/28/2015 4:43pm Height (Feet) 5 feet 08/28/2015 2:55pm Height (Inches) 3.00 inches 08/28/2015 2:55pm Height (Calculated Centimeters) 160.891903 cm 08/28/2015 2:55pm Weight (Pounds) 185 pounds 08/28/2015 2:55pm Weight (Ounces) 0.0 oz 08/28/2015 2:55pm Weight (Calculated Grams) 97205.589 gm 08/28/2015 2:55pm Weight (Calculated Kilograms) 83.080519 kilograms 08/28/2015 2:55pm Calculated BMI 32.77 08/28/2015 2:55pm Results No known relevant diagnostic tests, laboratory data and/or discharge summary. Procedures Procedure Status Date Provider(s) Diagnostic colonoscopy Active 08/28/15 LALITO JAFFE DO Encounters Encounter Location Arrival/Admit Date Discharge/Depart Date Attending Provider Departed [facility] 08/28/15 1:43pm 4:44pm LALITO JAFFE DO Registered Clinic [facility] 08/27/15 5:43am LALITO JAFFE DO Registered Clinic [facility] 08/06/15 3:12pm MARCIANO EGAN MD ([facility]U)
--- OUTSIDE RECORDS SUMMARY | 2018-12-29 15:21 | XMS REPORT | Continuity of Care Document ---
Author Author [facility] Organization [facility] Address Unknown Phone Unavailable Care Team Providers Care Quality Assurance Lead Name Role Phone SHAYNE CARDONA MD PCP Insurance Providers Payer Name Policy Number Subscriber Name Relationship [facility] [employer] [id number] Jaxon Pascual 18 Self / Same As Patient Advance Directives Directive Response Recorded Date/Time Advance Directives No 12/16/14 11:12am Health Care Power of Strap Machine Operator No 12/16/14 11:12am Organ Donor Yes 12/16/14 11:12am Problems Active Problems Medical Problem Onset Date [...] Recreational Drug Use Y cannibus 12/16/2014 11:12am Sexually Transmitted Disease No 12/16/2014 11:12am Hospital Discharge Instructions No hospital discharge instructions. Plan of Care Prescriptions See Medication Section Functional Status No functional status results. Allergies, Adverse Reactions, Alerts Allergen Type Severity Reaction Status Last Updated Penicillins ([id number]) Allergy Mild Active 06/09/09 Immunizations Name Given Type Date of Pneumonia Vaccine 12/14/14 Historical Date of Influenza Vaccine 12/14/14 Historical Vital Signs No known vital signs results. Results No known relevant diagnostic tests, laboratory data and/or discharge summary. Procedures No known history of procedures. Encounters Encounter Location Arrival/Admit Date Discharge/Depart Date Attending Provider Discharged Recurring [facility] 07/06/15 11:47am 1:21pm JAIRO OMALLEY FACP, MD [facility]
--- OUTSIDE RECORDS SUMMARY | 2018-12-29 15:21 | XMS REPORT ---
Author MANSI Cervantes [facility] eClinicalWorks Address Unknown Phone Unavailable Care Team Providers Care Foundry Tender Name Role Phone MANSI SCHAFFER CP Unavailable Allergies, Adverse Reactions, Alerts Substance Reaction Event Type Penicillin V Potassium Info Not Available Drug Allergy Benzoyl Peroxide Info Not Available Drug Allergy Morphine violent behavior Drug Allergy Proactive Info Not Available Non Drug Allergy Problems Problem Type Condition Code Onset Dates Condition Status Assessment Hypertension, benign I10 Active Assessment Coronary artery disease involving tuscarora heart without angina pectoris, unspecified vessel or lesion type I25.10 Active Problem Ischemic heart disease I25.9 Active Problem Hypertension, benign I10 Active Problem Hyperlipidemia, mixed E78.2 Active Assessment Ischemic heart disease I25.[address] elevation (STEMI) myocardial infarction involving left anterior descending coronary artery I21.02 Active Assessment Mood disorder F39 Active Assessment Hyperlipidemia, mixed E78.2 Active Medications Medication Code System Code Instructions Start Date End Date Status Dosage Metoprolol Tartrate [facility] 36510383907 25 MG TAKE ONE-HALF TABLET BY MOUTH TWICE DAILY Protonix [facility] 23704551989 40 MG TAKE ONE TABLET BY MOUTH DAILY Cromolyn Sodium [facility] [address]-44 4 % Ophthalmic Four times a day 1 drop into affected eye Singulair [facility] 81920176062 10 MG TAKE ONE TABLET BY MOUTH DAILY Aspirin [facility] [address]-31 81 MG Orally Once a day 1 tablet Simvastatin [facility] [address]-20 20 MG Once a day 1 tablet in the evening Lisinopril [facility] [address]-48 10 MG Once a day 1 tablet Proventil HFA [facility] 58264167716 108 (90 Base) MCG/ACT INHALE TWO PUFFS BY MOUTH FOUR TIMES DAILY Procedures Procedure Coding System Code Date Office Visit, Est Pt., Level 3 CPT-4 72237 Sep 21, 2015 Vital Signs Date/Time: Sep 21, 2015 Temperature 98.1 F Weight 191.1 lbs Height 61 in BMI 36.10 Index Blood Pressure Diastolic 82 mmHg Blood Pressure Systolic 140 mmHg Cardiac Monitoring Heart Rate 82 bpm Results No Known Results Summary Purpose eClinicalWorks Submission
--- OUTSIDE RECORDS SUMMARY | 2018-12-29 15:22 | XMS REPORT | Continuity of Care Document ---
Author Author [facility] Ctr of [facility] Ctr of [facility] Address Unknown Phone Unavailable Allergies Active Description Code Type Severity Reaction Onset Reported/Identified Relationship to Patient Clinical Status Yes Penicillins [id number] Drug Allergy Mild N/A 06/09/2009 Yes Penicillins Drug Allergy 09/03/2010 Yes Penicillins Drug Allergy N/A N/A 09/03/2010 Yes benzoyl peroxide Drug Allergy N/A N/A 01/24/2014 Yes morphine [id number] Drug Allergy Severe Hallucinations 08/04/2017 Yes Penicillins [id number] Drug Allergy Severe EYES/ LIPS SWEL 08/04/2017 Medications There is no data. Problems Date Dx Coded Attending Type Code Diagnosis Diagnosed By 07/24/2008 790.4 ABNORMAL LIVER FUNCTION 07/24/2008 790.4 ABNORMAL LIVER FUNCTION 07/24/2008 MANSI SCHAFFER APRN 790.4 ABNORMAL LIVER FUNCTION 07/24/2008 790.4 ABNORMAL LIVER FUNCTION 07/24/2008 790.4 ABNORMAL LIVER FUNCTION 07/24/2008 SHAYNE CARDONA MD 790.4 ABNORMAL LIVER FUNCTION 07/24/2008 MANSI SCHAFFER APRN 790.4 ABNORMAL LIVER FUNCTION 07/24/2008 MANSI SCHAFFER APRN 790.4 ABNORMAL LIVER FUNCTION 07/24/2008 MANSI SCHAFFER APRN 790.4 ABNORMAL LIVER FUNCTION 07/24/2008 MANSI SCHAFFER APRN 790.4 ABNORMAL LIVER FUNCTION 07/24/2008 MANSI SCHAFFER APRN 790.4 ABNORMAL LIVER FUNCTION 09/03/2010 401.1 HYPERTENSION, BENIGN ESSENTIAL 09/03/2010 461.9 SINUSITIS ACUTE 09/03/2010 401.1 HYPERTENSION, BENIGN ESSENTIAL 09/03/2010 461.9 SINUSITIS ACUTE 09/03/2010 MANSI SCHAFFER APRN 401.1 HYPERTENSION, BENIGN ESSENTIAL 09/03/2010 MANSI SCHAFFER APRN 461.9 SINUSITIS ACUTE 09/03/2010 401.1 HYPERTENSION, BENIGN ESSENTIAL 09/03/2010 461.9 SINUSITIS ACUTE 09/03/2010 401.1 HYPERTENSION, BENIGN ESSENTIAL 09/03/2010 461.9 SINUSITIS ACUTE 09/03/2010 SHAYNE CARDONA MD 401.1 HYPERTENSION, BENIGN ESSENTIAL 09/03/2010 SHAYNE CARDONA MD 461.9 SINUSITIS ACUTE 09/03/2010 MANSI SCHAFFER APRN T 401.1 HYPERTENSION, BENIGN ESSENTIAL 09/03/2010 MANSI SCHAFFER APRN T 461.9 SINUSITIS ACUTE 09/03/2010 MANSI SCHAFFER APRN T 401.1 HYPERTENSION, BENIGN ESSENTIAL 09/03/2010 SARBJIT MCFADDEN MANSI T 461.9 SINUSITIS ACUTE 09/03/2010 MANSI SCHAFFER APRN T 401.1 HYPERTENSION, BENIGN ESSENTIAL 09/03/2010 MANSI SCHAFFER APRN T 461.9 SINUSITIS ACUTE 09/03/2010 MANSI SCHAFFER APRN T 401.1 HYPERTENSION, BENIGN ESSENTIAL 09/03/2010 MANSI SCHAFFER APRN T 461.9 SINUSITIS ACUTE 09/03/2010 MANSI SCHAFFER APRN T 401.1 HYPERTENSION, BENIGN ESSENTIAL 09/03/2010 MANSI SCHAFFER APRN T 461.9 SINUSITIS ACUTE 04/03/2011 795.5 NONSPECIFIC REACTION TO TUBERCULIN SKIN TEST WITHOUT ACTIVE TUBERCULOSIS 04/03/2011 795.5 NONSPECIFIC REACTION TO TUBERCULIN SKIN TEST WITHOUT ACTIVE TUBERCULOSIS 04/03/2011 MANSI SCHAFFER APRN T 795.5 NONSPECIFIC REACTION TO TUBERCULIN SKIN TEST WITHOUT ACTIVE TUBERCULOSIS 04/03/2011 795.5 NONSPECIFIC REACTION TO TUBERCULIN SKIN TEST WITHOUT ACTIVE TUBERCULOSIS 04/03/2011 795.5 NONSPECIFIC REACTION TO TUBERCULIN SKIN TEST WITHOUT ACTIVE TUBERCULOSIS 04/03/2011 SHAYNE CARDONA MD 795.5 NONSPECIFIC REACTION TO TUBERCULIN SKIN TEST WITHOUT ACTIVE TUBERCULOSIS 04/03/2011 MANSI SCHAFFER APRN T 795.5 NONSPECIFIC REACTION TO TUBERCULIN SKIN TEST WITHOUT ACTIVE TUBERCULOSIS 04/03/2011 MANSI SCHAFFER APRN T 795.5 NONSPECIFIC REACTION TO TUBERCULIN SKIN TEST WITHOUT ACTIVE TUBERCULOSIS 04/03/2011 MANSI SCHAFFER APRN T 795.5 NONSPECIFIC REACTION TO TUBERCULIN SKIN TEST WITHOUT ACTIVE TUBERCULOSIS 04/03/2011 MANSI SCHAFFER APRN T 795.5 NONSPECIFIC REACTION TO TUBERCULIN SKIN TEST WITHOUT ACTIVE TUBERCULOSIS 04/03/2011 MANSI SCHAFFER APRN T 795.5 NONSPECIFIC REACTION TO TUBERCULIN SKIN TEST WITHOUT ACTIVE TUBERCULOSIS 07/23/2011 477.9 RHINITIS 07/23/2011 627.3 VAGINITIS - ATROPHIC 07/23/2011 692.9 DERMATITIS CONTACT UNSPECIFIED 07/23/2011 477.9 RHINITIS 07/23/2011 627.3 VAGINITIS - ATROPHIC 07/23/2011 692.9 DERMATITIS CONTACT UNSPECIFIED 07/23/2011 MANSI SCHAFFER APRN 477.9 RHINITIS 07/23/2011 MANSI SCHAFFER APRN 627.3 VAGINITIS - ATROPHIC 07/23/2011 MANSI SCHAFFER APRN 692.9 DERMATITIS CONTACT UNSPECIFIED 07/23/2011 477.9 RHINITIS 07/23/2011 627.3 VAGINITIS - ATROPHIC 07/23/2011 692.9 DERMATITIS CONTACT UNSPECIFIED 07/23/2011 477.9 RHINITIS 07/23/2011 627.3 VAGINITIS - ATROPHIC 07/23/2011 692.9 DERMATITIS CONTACT UNSPECIFIED 07/23/2011 SHAYNE CARDONA MD 477.9 RHINITIS 07/23/2011 SHAYNE CARDONA MD 627.3 VAGINITIS - ATROPHIC 07/23/2011 SHAYNE CARDONA MD 692.9 DERMATITIS CONTACT UNSPECIFIED 07/23/2011 MANSI SCHAFFER APRN 477.9 RHINITIS 07/23/2011 MANSI SCHAFFER APRN 627.3 VAGINITIS - ATROPHIC 07/23/2011 MANSI SCHAFFER APRN 692.9 DERMATITIS CONTACT UNSPECIFIED 07/23/2011 MANSI SCHAFFER APRN 477.9 RHINITIS 07/23/2011 MANSI SCHAFFER APRN 627.3 VAGINITIS - ATROPHIC 07/23/2011 MANSI SCHAFFER APRN 692.9 DERMATITIS CONTACT UNSPECIFIED 07/23/2011 MANSI SCHAFFER APRN 477.9 RHINITIS 07/23/2011 MANSI SCHAFFER APRN 627.3 VAGINITIS - ATROPHIC 07/23/2011 MANSI SCHAFFER APRN 692.9 DERMATITIS CONTACT UNSPECIFIED 07/23/2011 MANSI SCHAFFER APRN 477.9 RHINITIS 07/23/2011 MANSI SCHAFFER APRN 627.3 VAGINITIS - ATROPHIC 07/23/2011 MANSI SCHAFFER APRN 692.9 DERMATITIS CONTACT UNSPECIFIED 07/23/2011 MANSI SCHAFFER APRN 477.9 RHINITIS 07/23/2011 MANSI SCHAFFER APRN 627.3 VAGINITIS - ATROPHIC 07/23/2011 MANSI SCHAFFER APRN 692.9 DERMATITIS CONTACT UNSPECIFIED 10/22/2011 V68.1 ISSUE OF REPEAT PRESCRIPTIONS 10/22/2011 V68.1 ISSUE OF REPEAT PRESCRIPTIONS 10/22/2011 MANSI SCHAFFER APRN V68.1 ISSUE OF REPEAT PRESCRIPTIONS 10/22/2011 V68.1 ISSUE OF REPEAT PRESCRIPTIONS 10/22/2011 V68.1 ISSUE OF REPEAT PRESCRIPTIONS 10/22/2011 SHAYNE CARDONA MD V68.1 ISSUE OF REPEAT PRESCRIPTIONS 10/22/2011 MANSI SCHAFFER APRN V68.1 ISSUE OF REPEAT PRESCRIPTIONS 10/22/2011 MANSI SCHAFFER APRN V68.1 ISSUE OF REPEAT PRESCRIPTIONS 10/22/2011 MANSI SCHAFFER APRN V68.1 ISSUE OF REPEAT PRESCRIPTIONS 10/22/2011 MANSI SCHAFFER APRN V68.1 ISSUE OF REPEAT PRESCRIPTIONS 10/22/2011 MANSI SCHAFFER APRN V68.1 ISSUE OF REPEAT PRESCRIPTIONS 07/05/2012 011.90 TUBERCULOSIS 07/05/2012 011.90 TUBERCULOSIS 07/05/2012 MANSI SCHAFFER APRN 011.90 TUBERCULOSIS 07/05/2012 011.90 TUBERCULOSIS 07/05/2012 011.90 TUBERCULOSIS 07/05/2012 SHAYNE CARDONA MD 011.90 TUBERCULOSIS 07/05/2012 MANSI SCHAFFER APRN 011.90 TUBERCULOSIS 07/05/2012 MANSI SCHAFFER APRN 011.90 TUBERCULOSIS 07/05/2012 MANSI SCHAFFER APRN 011.90 TUBERCULOSIS 07/05/2012 MANSI SCHAFFER APRN 011.90 TUBERCULOSIS 07/05/2012 MANSI SCHAFFER APRN 011.90 TUBERCULOSIS 10/27/2012 272.4 HYPERLIPIDEMIA 10/27/2012 296.90 MOOD DISORDER 10/27/2012 MANSI SCHAFFER APRN 272.4 HYPERLIPIDEMIA 10/27/2012 MANSI SCHAFFER APRN 296.90 MOOD DISORDER 10/27/2012 272.4 HYPERLIPIDEMIA 10/27/2012 296.90 MOOD DISORDER 10/27/2012 272.4 HYPERLIPIDEMIA 10/27/2012 296.90 MOOD DISORDER 10/27/2012 SHAYNE CARDONA MD 272.4 HYPERLIPIDEMIA 10/27/2012 SHAYNE CARDONA MD 296.90 MOOD DISORDER 10/27/2012 MANSI SCHAFFER APRN 272.4 HYPERLIPIDEMIA 10/27/2012 [employer], MANSI T 296.90 MOOD DISORDER 10/27/2012 SARBJIT RAMIREZN, MANSI T 272.4 HYPERLIPIDEMIA 10/27/2012 [employer], MANSI T 296.90 MOOD DISORDER 10/27/2012 SARBJIT RAMIREZN, MANSI T 272.4 HYPERLIPIDEMIA 10/27/2012 [employer], MANSI T 296.90 MOOD DISORDER 10/27/2012 SARBJIT RAMIREZN, MANSI T 272.4 HYPERLIPIDEMIA 10/27/2012 SARBJIT RAMIREZN, MANSI T 296.90 MOOD DISORDER 10/27/2012 SARBJIT RAMIREZN, MANSI T 272.4 HYPERLIPIDEMIA 10/27/2012 [employer], MANSI T 296.90 MOOD DISORDER 07/12/2013 [place], SHAYNE 477.0 ALLERGIC RHINITIS DUE TO POLLEN 07/12/2013 [place], SHAYNE 493.90 ASTHMA UNSPECIFIED 07/12/2013 SHAYNE CARDONA MD 780.60 FEVER, UNSPECIFIED 07/12/2013 MANSI SCHAFFER APRN T 477.0 ALLERGIC RHINITIS DUE TO POLLEN 07/12/2013 MANSI SCHAFFER APRN T 493.90 ASTHMA UNSPECIFIED 07/12/2013 MANSI SCHAFFER APRN T 780.60 FEVER, UNSPECIFIED 07/12/2013 SARBJIT MCFADDEN, MANSI T 477.0 ALLERGIC RHINITIS DUE TO POLLEN 07/12/2013 SARBJIT MCFADDEN, MANSI T 493.90 ASTHMA UNSPECIFIED 07/12/2013 SARBJIT MCFADDEN, MANSI T 780.60 FEVER, UNSPECIFIED 07/12/2013 SARBJIT MCFADDEN, MANSI T 477.0 ALLERGIC RHINITIS DUE TO POLLEN 07/12/2013 MANSI SCHAFFER APRN T 493.90 ASTHMA UNSPECIFIED 07/12/2013 MANSI SCHAFFER APRN T 780.60 FEVER, UNSPECIFIED 07/12/2013 MANSI SCHAFFER APRN T 477.0 ALLERGIC RHINITIS DUE TO POLLEN 07/12/2013 SARBJIT RAMIREZNMANSI T 493.90 ASTHMA UNSPECIFIED 07/12/2013 MANSI SCHAFFER APRN T 780.60 FEVER, UNSPECIFIED 07/12/2013 MANSI SCHAFFER APRN T 477.0 ALLERGIC RHINITIS DUE TO POLLEN 07/12/2013 MANSI SCHAFFER APRN T 493.90 ASTHMA UNSPECIFIED 07/12/2013 MANSI SCHAFFER APRN T 780.60 FEVER, UNSPECIFIED 01/06/2014 MANSI SCHAFFER APRN T 780.52 INSOMNIA UNSPECIFIED 01/06/2014 MANSI SCHAFFER APRN T 780.52 INSOMNIA UNSPECIFIED 01/06/2014 MANSI SCHAFFER APRN T 780.52 INSOMNIA UNSPECIFIED 01/06/2014 SARBJIT MCFADDEN MANSI T 780.52 INSOMNIA UNSPECIFIED 01/06/2014 MANSI SCHAFFER APRN Chaitanya 780.52 INSOMNIA UNSPECIFIED 12/04/2014 Ot V76.12 12/04/2014 Ot 793.82 12/04/2014 Ot V76.12 12/04/2014 Ot 793.80 12/04/2014 [place], SHAYNE Brooks Ot 272.4 HYPERLIPIDEMIA NEC/NOS 12/04/2014 [place], SHAYNE Brooks Ot 305.20 CANNABIS ABUSE-UNSPEC 12/04/2014 SHAYNE CARDONA MD Ot 401.9 HYPERTENSION NOS 12/04/2014 [place], SHAYNE Brooks Ot 410.71 AC MYOCARDIAL INFARCT,SUBENDO INFARCT,IN 12/04/2014 SHAYNE CARDONA MD Ot 414.01 CORONARY ATHEROSCLEROSIS OF [place] CORON 12/04/2014 [place], SHAYNE Brooks Ot 414.8 CHR ISCHEMIC HRT DIS NEC 12/04/2014 SHAYNE CARDONA MD Ot 493.20 CHRONIC OBSTRUCTIVE ASTHMA, NOS 12/04/2014 SHAYNE CARDONA MD Ot 558.9 NONINF GASTROENTERIT NEC 12/04/2014 [place], SHAYNE Brooks Ot V15.82 HISTORY OF TOBACCO USE 12/05/2014 Ot V76.12 12/05/2014 Ot 793.82 12/05/2014 Ot V76.12 12/05/2014 Ot 793.80 12/05/2014 Ot V76.12 12/05/2014 Ot 793.82 12/05/2014 Ot V76.12 12/05/2014 Ot 793.80 12/05/2014 Ot V76.12 12/05/2014 Ot 793.82 12/05/2014 Ot V76.12 12/05/2014 Ot 793.80 12/16/2014 Ot V76.12 12/16/2014 Ot 793.82 12/16/2014 Ot V76.12 12/16/2014 Ot 793.80 12/16/2014 ALINE BA[employer]AN [employer] Ot 354.2 ULNAR NERVE LESION 12/16/2014 ALINE BAZAN [employer] Ot 401.9 HYPERTENSION NOS 12/16/2014 ALINE BAZAN [employer] Ot 414.00 CORON ATHEROSCLER NOS TYPE VESSEL, NATIV 12/16/2014 BAZAN, PETER J [employer] Ot 782.0 SKIN SENSATION DISTURB 12/16/2014 ALINE BAZAN [employer] Ot V45.81 AORTOCORONARY BYPASS 12/16/2014 ALINE BAZAN [employer] Ot V58.66 LONG-TERM (CURRENT) USE OF ASPIRIN 12/16/2014 ALINE BAZAN APRN Ot V58.69 OTH MED,LT,CURRENT USE 12/18/2014 Ot V76.12 12/18/2014 Ot 793.82 12/18/2014 Ot V76.12 12/18/2014 Ot 793.80 12/18/2014 Ot V76.12 12/18/2014 Ot 793.82 12/18/2014 Ot V76.12 12/18/2014 Ot 793.80 01/02/2015 MANSI SCHAFFER APRN 278.00 OBESITY UNSPECIFIED 01/02/2015 MANSI SCHAFFER APRN 401.9 UNSPECIFIED ESSENTIAL HYPERTENSION 01/02/2015 MANSI SCHAFFER APRN 414.01 CORONARY ATHEROSCLEROSIS OF [place] CORONARY ARTERY 01/02/2015 MANSI SCHAFFER APRN 414.8 OTHER SPECIFIED FORMS OF CHRONIC ISCHEMIC HEART DISEASE 01/02/2015 MANSI SCHAFFER APRN 278.00 OBESITY UNSPECIFIED 01/02/2015 MANSI SCHAFFER APRN 401.9 UNSPECIFIED ESSENTIAL HYPERTENSION 01/02/2015 MANSI SCHAFFER APRN 414.01 CORONARY ATHEROSCLEROSIS OF [place] CORONARY ARTERY 01/02/2015 MANSI SCHAFFER APRN 414.8 OTHER SPECIFIED FORMS OF CHRONIC ISCHEMIC HEART DISEASE 01/05/2015 Ot V76.12 01/05/2015 Ot 793.82 01/05/2015 Ot V76.12 01/05/2015 Ot 793.80 01/10/2015 Ot 272.4 01/10/2015 Ot 278.00 01/10/2015 Ot 401.9 01/10/2015 Ot 414.01 01/10/2015 Ot 414.8 01/10/2015 Ot 272.4 01/10/2015 Ot 278.00 01/10/2015 Ot 401.9 01/10/2015 Ot 414.01 01/10/2015 Ot 414.8 01/12/2015 Ot 272.4 01/12/2015 Ot 278.00 01/12/2015 Ot 401.9 01/12/2015 Ot 414.01 01/12/2015 Ot 414.8 02/23/2015 Ot 272.4 02/23/2015 Ot 278.00 02/23/2015 Ot 401.9 02/23/2015 Ot 414.01 02/23/2015 Ot 414.8 02/23/2015 Ot V76.12 02/23/2015 Ot 793.82 02/23/2015 Ot V76.12 02/23/2015 Ot 793.80 02/23/2015 Ot 272.4 02/23/2015 Ot 278.00 02/23/2015 Ot 401.9 02/23/2015 Ot 414.01 02/23/2015 Ot 414.8 02/23/2015 Ot V76.12 02/23/2015 Ot 793.82 02/23/2015 Ot V76.12 02/23/2015 Ot 793.80 02/23/2015 Ot 272.4 02/23/2015 Ot 278.00 02/23/2015 Ot 401.9 02/23/2015 Ot 414.01 02/23/2015 Ot 414.8 02/26/2015 Ot V76.12 02/26/2015 Ot 793.82 02/26/2015 Ot V76.12 02/26/2015 Ot 793.80 02/26/2015 Ot 272.4 02/26/2015 Ot 278.00 02/26/2015 Ot 401.9 02/26/2015 Ot 414.01 02/26/2015 Ot 414.8 02/27/2015 Ot V76.12 02/27/2015 Ot 793.82 02/27/2015 Ot V76.12 02/27/2015 Ot 793.80 02/27/2015 Ot 272.4 02/27/2015 Ot 278.00 02/27/2015 Ot 401.9 02/27/2015 Ot 414.01 02/27/2015 Ot 414.8 02/27/2015 Ot 272.4 02/27/2015 Ot 278.00 02/27/2015 Ot 401.9 02/27/2015 Ot 414.01 02/27/2015 Ot 414.8 02/27/2015 Ot 272.4 02/27/2015 Ot 278.00 02/27/2015 Ot 401.9 02/27/2015 Ot 414.01 02/27/2015 Ot 414.8 03/16/2015 Ot 272.4 03/16/2015 Ot 278.00 03/16/2015 Ot 401.9 03/16/2015 Ot 414.01 03/16/2015 Ot 414.8 03/26/2015 Ot 272.4 03/26/2015 Ot 278.00 03/26/2015 Ot 401.9 03/26/2015 Ot 414.01 03/26/2015 Ot 414.8 04/30/2015 LYSSA GIBBSC, ALI FACP CCDS Ot V45.81 04/30/2015 [place] FACC, ALI FACP CCDS Ot V57.89 05/27/2015 [place] FACC, ALI FACP CCDS Ot V45.81 AORTOCORONARY BYPASS 05/27/2015 [place] FACC, ALI FACP CCDS Ot V57.89 REHABILITATION PROC NEC 05/28/2015 [place] FACC, ALI FACP CCDS Ot V45.81 05/28/2015 [place] FACC, ALI FACP CCDS Ot V57.89 05/28/2015 [place] FACC, ALI FACP CCDS Ot V45.81 05/28/2015 [place] FACC, ALI FACP CCDS Ot V57.89 05/28/2015 L[place] FACC, ALI FACP CCDS Ot V45.81 05/28/2015 L[place] FACC, ALI FACP CCDS Ot V57.89 05/28/2015 [place] FACC, ALI FACP CCDS Ot V45.81 05/28/2015 [place] FACC, ALI FACP CCDS Ot V57.89 05/28/2015 [place] FACC, ALI FACP CCDS Ot V45.81 05/28/2015 [place] FACC, ALI FACP CCDS Ot V57.89 05/29/2015 [place] FACC, ALI FACP CCDS Ot V45.81 05/29/2015 [place] FACC, ALI FACP CCDS Ot V57.89 05/29/2015 [place] FACC, ALI FACP CCDS Ot V45.81 05/29/2015 [place] FACC, ALI FACP CCDS Ot V57.89 05/29/2015 [place] FACC, ALI FACP CCDS Ot V45.81 05/29/2015 [place] FACC, ALI FACP CCDS Ot V57.89 06/12/2015 LYSSA GIBBSC, ALI FACP CCDS Ot V45.81 06/12/2015 [place] FACC, JAIRO FACP CCDS Ot V57.89 06/29/2015 [place] FACC, JAIRO FACP CCDS Ot V45.81 06/29/2015 [place] FACC, JAIRO FACP CCDS Ot V57.89 07/06/2015 [place] FACC, JAIRO FACP CCDS Ot V45.81 AORTOCORONARY BYPASS 07/06/2015 [place] FACC, JAIRO FACP CCDS Ot V57.89 REHABILITATION PROC NEC 08/06/2015 Ot V76.12 08/06/2015 Ot 793.82 08/06/2015 Ot V76.12 08/06/2015 Ot 793.80 08/06/2015 Ot 272.4 08/06/2015 Ot 278.00 08/06/2015 Ot 401.9 08/06/2015 Ot 414.01 08/06/2015 Ot 414.8 08/06/2015 Ot V76.12 08/06/2015 Ot 793.82 08/06/2015 Ot V76.12 08/06/2015 Ot 793.80 08/06/2015 Ot 272.4 08/06/2015 Ot 278.00 08/06/2015 Ot 401.9 08/06/2015 Ot 414.01 08/06/2015 Ot 414.8 08/28/2015 LALITO JAFFE DO Ot D12.8 BENIGN NEOPLASM OF RECTUM 07/21/2017 Ot 793.82 INCONCLUSIVE MAMMOGRAM 07/21/2017 Ot V76.12 OTH SCREEN MAMMO-MALIGN NEOPLASM OF KORT[place] 07/21/2017 Ot 793.80 UNSPEC ABNORMAL MAMMOGRAM 07/21/2017 Ot 272.4 HYPERLIPIDEMIA NEC/NOS 07/21/2017 Ot 278.00 OBESITY, NOS 07/21/2017 Ot 401.9 HYPERTENSION NOS 07/21/2017 Ot 414.01 CORONARY ATHEROSCLEROSIS OF [place] CORON 07/21/2017 Ot 414.8 CHR ISCHEMIC HRT DIS NEC 08/04/2017 [place] FACC, JAIRO FACP CCDS Ot E78.5 HYPERLIPIDEMIA, UNSPECIFIED 08/04/2017 [place] FACC, JAIRO FACP CCDS Ot I10 ESSENTIAL (PRIMARY) HYPERTENSION 08/04/2017 [place] FACC, JAIRO FACP CCDS Ot I25.10 ATHSCL HEART DISEASE OF [place] CORONARY 08/04/2017 [place] FACC, ALI FACP CCDS Ot I25.82 CHRONIC TOTAL OCCLUSION OF CORONARY [place] 08/04/2017 [place] FACEdmar, ALI FACP CCDS Ot R07.89 OTHER CHEST PAIN 08/04/2017 [place] FACC, ALI FACP CCDS Ot T82.857A STENOSIS OF OTHER CARDIAC PROSTH DEV/GRF 08/04/2017 [place] FACC, ALI FACP CCDS Ot Z79.899 OTHER PUBLIC POLICY MEDIATOR (CURRENT) DRUG THERAPY 08/10/2017 [place] FACC, ALI FACP CCDS Ot M79.661 PAIN IN RIGHT LOWER LEG 08/12/2017 [place] FACC, ALI FACP CCDS Ot E78.5 HYPERLIPIDEMIA, UNSPECIFIED 08/12/2017 [place] FACC, ALI FACP CCDS Ot I10 ESSENTIAL (PRIMARY) HYPERTENSION 08/12/2017 [place] FACC, ALI FACP CCDS Ot I25.10 ATHSCL HEART DISEASE OF [place] CORONARY 08/12/2017 [place] FACC, JAIRO FACP CCDS Ot I25.82 CHRONIC TOTAL OCCLUSION OF CORONARY [place] 08/12/2017 [place] FACC, ALI FACP CCDS Ot R07.89 OTHER CHEST PAIN 08/12/2017 [place] FACC, ALI FACP CCDS Ot T82.857A STENOSIS OF OTHER CARDIAC PROSTH DEV/GRF 08/12/2017 [place] FACC, ALI FACP CCDS Ot Z79.899 OTHER PUBLIC POLICY MEDIATOR (CURRENT) DRUG THERAPY 08/12/2017 [place] FACC, ALI FACP CCDS Ot M79.661 PAIN IN RIGHT LOWER LEG 08/13/2017 JACKI CRESPO L VISITING NURSE Ot E78.4 OTHER HYPERLIPIDEMIA 08/13/2017 MINAMA JACKI L VISITING NURSE Ot I10 ESSENTIAL (PRIMARY) HYPERTENSION 08/13/2017 MINAMA JACKI L VISITING NURSE Ot I25.10 ATHSCL HEART DISEASE OF [place] CORONARY 08/13/2017 DELANEY CRESPOHER L VISITING NURSE Ot R07.89 OTHER CHEST PAIN 08/14/2017 [place] FACC, JAIRO FACP CCDS Ot E78.5 HYPERLIPIDEMIA, UNSPECIFIED 08/14/2017 [place] FACC, ALI FACP CCDS Ot I10 ESSENTIAL (PRIMARY) HYPERTENSION 08/14/2017 [place] FACC, JAIRO FACP CCDS Ot I25.10 ATHSCL HEART DISEASE OF [place] CORONARY 08/14/2017 [place] FACC, JAIRO FACP CCDS Ot I25.82 CHRONIC TOTAL OCCLUSION OF CORONARY [place] 08/14/2017 [place] FACC, ALI FACP CCDS Ot R07.89 OTHER CHEST PAIN 08/14/2017 [place] FACC, JAIRO FACP CCDS Ot T82.857A STENOSIS OF OTHER CARDIAC PROSTH DEV/GRF 08/14/2017 [place] FACC, ALI FACP CCDS Ot Z79.899 OTHER PUBLIC POLICY MEDIATOR (CURRENT) DRUG THERAPY 08/18/2017 [place] FACC, ALI FACP CCDS Ot M79.661 PAIN IN RIGHT LOWER LEG 08/23/2018 Ot 272.4 HYPERLIPIDEMIA NEC/NOS 08/23/2018 Ot 278.00 OBESITY, NOS 08/23/2018 Ot 401.9 HYPERTENSION NOS 08/23/2018 Ot 414.01 CORONARY ATHEROSCLEROSIS OF [place] CORON 08/23/2018 Ot 414.8 CHR ISCHEMIC HRT DIS NEC 08/23/2018 BAIMA JACKI L VISITING NURSE Ot E78.4 OTHER HYPERLIPIDEMIA 08/23/2018 BAIMA JACKI L VISITING NURSE Ot I10 ESSENTIAL (PRIMARY) HYPERTENSION 08/23/2018 BAIMA JACKI L VISITING NURSE Ot I25.10 ATHSCL HEART DISEASE OF [place] CORONARY 08/23/2018 BAIMA JACKI L VISITING NURSE Ot R07.89 OTHER CHEST PAIN 08/23/2018 [place] FACC, ALI FACP CCDS Ot M79.661 PAIN IN RIGHT LOWER LEG Procedures Code Description [place] [address] A1C (IN-HOUSE) 10/27/2012 [id number] ROUTINE VENIPUNCTURE 04/25/2013 13324 LIPID PANEL 04/25/2013 82303 CBC 04/25/2013 86413 CMP 04/25/2013 [id number] GFR CALC (RESULT ONLY) 04/25/2013 95550 ROUTINE VENIPUNCTURE 08/09/2014 [id number] GFR CALC (RESULT ONLY) 08/09/2014 30128 CMP 08/09/2014 02727 LIPID PANEL 08/09/2014 45833 CBC 08/09/2014 37.22 LEFT HEART CARDIAC CATH 12/04/2014 37.61 PULSATION BALLOON IMPLAN 12/04/2014 88.53 LT HEART ANGIOCARDIOGRAM 12/04/2014 88.56 CORONAR ARTERIOGR-2 CATH 12/04/2014 Results Test Result Range CBC With Differential/Platelet - 05/07/17 08:26 WBC 6.8 x10E3/uL 3.4-10.8 RBC 4.63 x10E6/uL 3.77-5.28 Hemoglobin 13.0 g/dL 11.1-15.9 Hematocrit 39.9 % 34.0-46.6 MCV 86 fL 79-97 MCH 28.1 pg 26.6-33.0 MCHC 32.6 g/dL 31.5-35.7 RDW 13.5 % 12.3-15.4 Platelets 358 x10E3/uL 150-379 Neutrophils 52 % Lymphs 38 % Monocytes 6 % Eos 3 % Basos 1 % Neutrophils (Absolute) 3.5 x10E3/uL 1.4-7.0 Lymphs (Absolute) 2.6 x10E3/uL 0.7-3.1 Monocytes(Absolute) 0.4 x10E3/uL 0.1-0.9 Eos (Absolute) 0.2 x10E3/uL 0.0-0.4 Baso (Absolute) 0.1 x10E3/uL 0.0-0.2 Immature Granulocytes 0 % Immature Grans (Abs) 0.0 x10E3/uL 0.0-0.1 Comp. Metabolic Panel (14) - 05/07/17 08:26 Glucose, Serum 95 mg/dL 65-99 BUN 20 mg/dL 8-27 Creatinine, Serum 0.69 mg/dL 0.57-1.00 eGFR If NonAfricn Am 95 mL/min/1.73 >59 eGFR If Africn Am 109 mL/min/1.73 >59 BUN/Creatinine Ratio 29 12-28 Sodium, Serum 143 mmol/L 134-144 Potassium, Serum 4.4 mmol/L 3.5-5.2 Chloride, Serum 103 mmol/L 96-106 Carbon Dioxide, Total 26 mmol/L 18-29 Calcium, Serum 9.4 mg/dL 8.7-10.3 Protein, Total, Serum 6.9 g/dL 6.0-8.5 Albumin, Serum 4.2 g/dL 3.6-4.8 Globulin, Total 2.7 g/dL 1.5-4.5 A/G Ratio 1.6 1.2-2.2 Bilirubin, Total 0.3 mg/dL 0.0-1.2 Alkaline Phosphatase, S 33 IU/L 39-117 AST (SGOT) 16 IU/L 0-40 ALT (SGPT) 11 IU/L 0-32 Lipid Panel - 05/07/17 08:26 Cholesterol, Total 178 mg/dL 100-199 Triglycerides 217 mg/dL 0-149 HDL Cholesterol 59 mg/dL >39 VLDL Cholesterol Phi 43 mg/dL 5-40 LDL Cholesterol Calc 76 mg/dL 0-99 Automated blood complete blood count (hemogram) panel - 08/04/17 09:30 Blood leukocytes automated count (number/volume) 7.1 10*3/uL 4.3-11.0 Blood erythrocytes automated count (number/volume) 4.58 10*6/uL 4.35-5.85 Venous blood hemoglobin measurement (mass/volume) 13.0 g/dL 11.5-16.0 Blood hematocrit (volume fraction) 39 % 35-52 Automated erythrocyte mean corpuscular volume 86 [foz_us] 80-99 Automated erythrocyte mean corpuscular hemoglobin (mass per erythrocyte) 28 pg 25-34 Automated erythrocyte mean corpuscular hemoglobin concentration measurement ( mass/volume) 33 g/dL 32-36 Automated erythrocyte distribution width ratio 12.9 % 10.0-14.5 Automated blood platelet count (count/volume) 294 10*3/uL 130-400 Automated blood platelet mean volume measurement 10.8 [foz_us] 7.4-10.4 Comprehensive metabolic panel - 08/04/17 09:30 Serum or plasma sodium measurement (moles/volume) 138 mmol/L 135-145 Serum or plasma potassium measurement (moles/volume) 4.0 mmol/L 3.6-5.0 Serum or plasma chloride measurement (moles/volume) 107 mmol/L 98-107 Carbon dioxide 23 mmol/L 21-32 Serum or plasma anion gap determination (moles/volume) 8 mmol/L 5-14 Serum or plasma urea nitrogen measurement (mass/volume) 20 mg/dL 7-18 Serum or plasma creatinine measurement (mass/volume) 0.78 mg/dL 0.60-1.30 Serum or plasma urea nitrogen/creatinine mass ratio 26 NRG Serum or plasma creatinine measurement with calculation of estimated glomerular filtration rate > NRG Serum or plasma glucose measurement (mass/volume) 111 mg/dL 70-105 Serum or plasma calcium measurement (mass/volume) 9.4 mg/dL 8.5-10.1 Serum or plasma total bilirubin measurement (mass/volume) 0.3 mg/dL 0.1-1.0 Serum or plasma alkaline phosphatase measurement (enzymatic activity/volume) 35 U/L 40-136 Serum or plasma aspartate aminotransferase measurement (enzymatic activity/ volume) 20 U/L 5-34 Serum or plasma alanine aminotransferase measurement (enzymatic activity/volume ) 16 U/L 0-55 Serum or plasma protein measurement (mass/volume) 6.7 g/dL 6.4-8.2 Serum or plasma albumin measurement (mass/volume) 4.2 g/dL 3.2-4.5 Lipid 1996 panel - 08/04/17 09:30 Serum or plasma triglyceride measurement (mass/volume) 129 mg/dL <150 Serum or plasma cholesterol measurement (mass/volume) 147 mg/dL < 200 Serum or plasma cholesterol in HDL measurement (mass/volume) 52 mg/ dL 40-60 Cholesterol in LDL [mass/volume] in serum or plasma by direct assay 69 mg/dL 1-129 Serum or plasma cholesterol in VLDL measurement (mass/volume) 26 mg/ dL 5-40 PT panel in platelet poor plasma by coagulation assay - 08/04/17 09:30 Prothrombin time (PT) in platelet poor plasma by coagulation assay 11.8 s 12.2-14.7 INR in platelet poor plasma or blood by coagulation assay 0.9 0.8-1.4 Activated partial thromboplastin time (aPTT) in platelet poor plasma bycoagulation assay - 08/04/17 09:30 Activated partial thromboplastin time (aPTT) in platelet poor plasma bycoagulation assay 26 s 24-35 Methicillin resistant Staphylococcus aureus (MRSA) screening culture - 09:30 Methicillin resistant Staphylococcus aureus (MRSA) screening culture NEG NRG MAGNESIUM SERUM - 06/18/18 15:46 MAGNESIUM 2.0 mg/dL 1.5-2.5 CULTURE, GENITAL - 08/13/18 10:38 CULTURE, GENITAL SEE NOTE NRG Encounters ACCT No. Visit Date/Time Discharge Status Pt. Type Provider Facility Loc./Unit Complaint [id number] 02/23/2015 11:42:00 02/23/2015 23:59:59 CLS Outpatient MANSI SHCAFFER APRN [id number] 01/29/2015 00:00:00 01/29/2015 23:59:59 CLS Outpatient MANSI SCHAFFER APRN [id number] 08/09/2014 08:04:00 08/09/2014 23:59:59 CLS Outpatient MANSI SCHAFFER APRN [id number] 08/07/2014 14:44:00 08/07/2014 23:59:59 CLS Outpatient MANSI SCHAFFER APRN [id number] 01/06/2014 09:38:00 01/06/2014 23:59:59 CLS Outpatient MANSI SCHAFFER APRN [id number] 07/12/2013 08:45:00 07/12/2013 23:59:59 CLS Outpatient [place], SHAY[place] [id number] 11/24/2012 10:37:00 11/24/2012 23:59:59 CLS Outpatient MANSI SCHAFFER APRN [id number] 10/27/2012 11:07:00 10/27/2012 23:59:59 CLS Outpatient [id number] 07/09/2012 10:17:00 07/09/2012 23:59:59 CLS Outpatient [id number] 04/25/2013 07:47:00 Document Registration [id number] 04/20/2013 17:38:00 Document Registration [id number] 06/18/2018 11:20:00 06/18/2018 23:59:59 CLS Outpatient MANSI SCHAFFER APRN [facility] [id number] 08/13/2018 10:20:00 Document Registration [id number] 06/18/2018 11:20:00 Document Registration [id number] 05/08/2017 08:07:00 Document Registration [id number] 08/16/2018 14:52:00 08/16/2018 23:59:59 CLS Preadmit [employer] [facility] RAD SCREENING [id number] 08/16/2018 12:47:00 08/16/2018 23:59:59 CLS Preadmit [employer] [facility] RAD SCREENING FOR OSTEOPOROSIS Z13.820 [id number] 08/07/2017 11:41:00 08/07/2017 23:59:59 CLS Outpatient [place]SS[place] FACC, JAIRO SMITH CCDS [facility] RAD PAIN IN RT LOWER LEG [id number] [id number] 08/04/2017 08:33:00 08/04/2017 15:25:00 DIS Outpatient [place] FACC, JAIRO SMITH CCDS [facility] CATH ABNORMAL STRESS [id number] 07/21/2017 07:18:00 07/21/2017 23:59:59 CLS Outpatient JACKI CRESPO 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 SDC BLOOD IN STOOL [id number] 08/06/2015 15:12:00 08/06/2015 23:59:59 CLS Outpatient MARCIANO EGAN MD (DDU) [facility] RT [id number] 07/06/2015 11:47:00 07/06/2015 13:21:00 DIS Outpatient JAIRO OMALLEY MD, FACC, FACP CCDS [facility] CR STATUS POST ACB [id number] 05/23/2015 11:58:00 05/27/2015 00:01:00 DIS Outpatient JAIRO OMALLEY MD, FACC, FACP CCDS [facility] CR STATUS POST ACB [id number] 12/16/2014 10:59:00 12/16/2014 13:27:00 DIS Emergency ALINE BAZAN APRN [facility] ER FINGER TINGLING [id number] 12/04/2014 06:00:00 12/04/2014 19:12:00 DIS Inpatient HSAYNE CARDONA MD [facility] CSD GI BLEED;COLITIS [id number] 01/05/2015 14:04:00 Document Registration [id number] 12/04/2014 06:25:00 Document Registration [id number] 09/03/2012 08:23:00 Document Registration [id number] 08/25/2012 10:16:00 Document Registration [id number] 05/28/2011 07:21:00 Document Registration [id number] 08/28/2015 13:44:45 ACT Document Registration
[2018-12-29] MEDS ORDERED: SULF1TAB35 PO (15:41)
--- NOTE | 2018-12-29 15:41 | ED Upper Extremity ---
General Chief Complaint: Laceration Stated Complaint: LT HAND LAC Nursing Triage Note: PT REPORTS STABBING HER LEFT HAND WITH A TINY PAIR OF SCISSORS. TWO SMALL ENTRY WOUNDS NOTED. NO BLEEDING PRESENT AT THIS TIME. PT IS CONCERNED SHE MAY HAVE CUT HER TENDONS OR LIGAMENTS IN HER HAND. Nursing Sepsis Screen: No Definite Risk Source: patient Exam Limitations: no limitations History of Present Illness Date Seen by Provider: Dec 29, 2018 Time Seen by Provider: 15:38 Initial Comments To ER with reports of a laceration to the left pointer finger from apparent scissors while trying to open a remote at home. His occurred just prior to arrival. Tetanus is not up-to-date. She is concerned that she may have cut the ligaments or tendons in her hand she states. Onset: just prior to arrival Severity: moderate Pain/Injury Location: left 2nd finger Modifying Factors: Worse With Movement Allergies and Home Medications Allergies Coded Allergies: Penicillins (Verified Allergy, Unknown, 12/29/18) Patient Home Medication List Home Medication List Reviewed: Yes Review of Systems Constitutional: see HPI EENTM: see HPI Respiratory: no symptoms reported Cardiovascular: no symptoms reported Genitourinary: no symptoms reported Musculoskeletal: no symptoms reported Skin: see HPI Psychiatric/Neurological: No Symptoms Reported Past Ltfrvpq-Ricovq-Qghzsz Hx Patient Social History Alcohol Use: Denies Use Recreational Drug Use: No Smoking Status: Never a Smoker Recent Foreign Travel: No Contact w/Someone Who Travel: No Recent Infectious Disease Expo: No Recent Hopitalizations: No Physical Abuse: No Sexual Abuse: No Seasonal Allergies Seasonal Allergies: Yes Past Medical History Surgeries: Yes CABG, Tonsillectomy Respiratory: No Cardiac: Yes Heart Attack, Hypertension Neurological: No Genitourinary: No Gastrointestinal: No Musculoskeletal: No Endocrine: No HEENT: No Cancer: No Psychosocial: No Integumentary: No Blood Disorders: No Physical Exam Vital Signs Vital Signs - First Documented 12/29/18 15:17 Temp 96.0 Pulse 70 Resp 16 B/P (MAP) 169/96 (120) Pulse Ox 94 Capillary Refill : Less Than 3 Seconds Height, Weight, BMI Height: 5'3.00" Weight: 200lbs. oz. 90.503948ip; BMI Method:Stated General Appearance: WD/WN, no apparent distress HEENT: PERRL/EOMI, normal ENT inspection Neck: non-tender, full range of motion Shoulder: normal inspection, non-tender Elbow/Forearm: normal inspection, non-tender Wrist: Yes normal inspection, Yes non-tender Hand: Left, laceration (to ER with a 2 mm laceration to the proximal aspect of the proximal phalanx left pointer finger on the radial side of this finger. Distally she has normal sensation, brisk capillary refill, normal flexion and extension abilities of the finger.) Neurologic/Tendon: normal sensation, normal motor functions, normal tendon functions Neurologic/Psychiatric: alert, normal mood/affect, oriented x 3 Skin: normal color, warm/dry Progress/Results/Core Measures Results/Orders Vital Signs/I&O 12/29/18 15:17 Temp 96.0 Pulse 70 Resp 16 B/P (MAP) 169/96 (120) Pulse Ox 94 Blood Pressure Mean: 120 Departure Impression Primary Impression: Puncture wound of hand Qualified Codes: S61.432A - Puncture wound without foreign body of left hand, initial encounter Disposition: 01 HOME, SELF-CARE Condition: Stable Departure-Patient Inst. Decision time for Depature: 15:40 Patient Instructions: Wound Care (DC) Add. Discharge Instructions: 1. Antibiotics as directed. Return to ER for any concerns 2. Follow-up with your doctor next week. All discharge instructions reviewed with patient and/or family. Voiced understanding. Scripts Sulfamethoxazole/Trimethoprim (Bactrim Ds Tablet) 1 Each Tablet 1 EACH PO BID, #6 TAB Prov: ALINE BAZAN APRN 12/29/18 ALINE BAZAN APRN Dec 29, 2018 15:41
[2018-12-29] MEDS ORDERED: TETANUS,DIPTH,PERTUSS P/F (BOOSTRIX) 0.5 ML VIAL IM ONE (15:45)
[2018-12-29 15:51] VITALS: BP 169/96
== END 2018-12-29 15:51 | disposition home or self-care (01) ==
LOC: EDUNIT# 15:04 → EDBD 15:07 → ER 15:07
DX: S61.432A Puncture wound without foreign body of left hand, initial encounter (principal); I25.2 Old myocardial infarction; I10 Essential (primary) hypertension; Z88.0 Allergy status to penicillin; Z95.1 Presence of aortocoronary bypass graft; Z90.89 Acquired absence of other organs; W26.8XXA Contact with other sharp object(s), not elsewhere classified, initial encounter; Y92.009 Unspecified place in unspecified non-institutional (private) residence as the place of occurrence of the external cause
CPT/HCPCS: 90715; 99284